=== PATIENT | female | born 1990 | race Caucasian/White ===

== ENCOUNTER 2017-12-07 20:36 | Emergency (ER) | payer BC, OTHER ==
[~2017-12-07] VITALS: Ht 170.2 cm; Wt 110.2 kg
[2017-12-07] MEDS ORDERED: [UNRECOGNIZED DRUG - OTHER] (21:22)
[2017-12-07] MEDS ORDERED: NITROFURANTOIN (21:22)
[2017-12-07 21:24] LABS: BILIRUBIN,URINE NEGATIVE (NEGATIVE); CLARITY,URINE SLIGHTLY CLOUDY; COLOR,URINE YELLOW; GLUCOSE, URINE (UA) NEGATIVE (NEGATIVE); KETONES,URINE 4+ (NEGATIVE); LEUKOCYTE ESTERASE ,URINE 3+ (NEGATIVE); NITRITE,URINE NEGATIVE (NEGATIVE); PH,URINE 8 (5-9); PROTEIN,URINE 2+ (NEGATIVE); UROBILINOGEN,URINE NORMAL (NORMAL)
[2017-12-07 21:35] LABS: BACTERIA,URINE FEW /HPF; RBC,URINE TNTC /HPF; WBC,URINE 25-50 /HPF
--- NOTE | 2017-12-07 21:48 | ED GU-Female ---
General Chief Complaint: -Female Stated Complaint: LOWER ABD PAIN;5 WKS ;UTI Nursing Triage Note: pt presents to er with complaint of abd pain. states she found out today she is roughly five weeks and has an uti. was seen by guy er earlier today and prescribed macrobid. they also told pt that she could have a threatened miscarriage, due to her spotting and bleeding since monday. pt states she has severe cramping of left side. Nursing Sepsis Screen: No Definite Risk Source: patient, family (gma) Exam Limitations: no limitations History of Present Illness Date Seen by Provider: Dec 07, 2017 Time Seen by Provider: 21:27 Initial Comments The patient resents to the ER by private conveyance with her mother and a chief complaint she's having left lower quadrant abdominal pain/pelvic pain. She thought she got off her. Monday, 6 days ago but that she continue to have spotting afterwards which concerned her as well as a little bit of pelvic discomfort so she went to urgent care which referred her on to the ER. She went to [place] [facility] because this closest where she lives and they told her that her hCG was 400 something and she was and based on her history she was having a threatened miscarriage. The patient says she has plans to follow-up on Monday for repeat hCG. She does not have an OB. She is a G 1 P0 at approximately 5 weeks. Her first and see test was yesterday. She was also found to have a UTI at that time and started on Macrobid which she took her first dose last night. She says her urine is much better however she still having quite a bit of pain in her left lower quadrant that comes and goes and she is concerned about the pain and what she can do for it. She has taken ibuprofen and Tylenol with only minimal relief. No ultrasounds been obtained. Allergies and Home Medications Allergies Coded Allergies: Penicillins (Verified Allergy, Unknown, 12/07/17) Patient Home Medication List Home Medication List Reviewed: Yes Review of Systems Constitutional: No chills, No diaphoresis, No fever, No malaise EENTM: No ear discharge, No ear pain Respiratory: No cough, No short of breath Cardiovascular: No chest pain, No edema Gastrointestinal: abdominal pain (RLQ); No constipation, No diarrhea, No nausea Genitourinary: burning; denies discharge, denies dysuria : Yes LMP: November 02, 2017 Musculoskeletal: No back pain, No joint pain Skin: No pruritus, No rash Psychiatric/Neurological: Denies Headache, Denies Numbness Past Yipoixm-Arxquv-Xbyvnv Hx Patient Social History Alcohol Use: Denies Use Recreational Drug Use: No Smoking Status: Never a Smoker Recent Foreign Travel: No Contact w/Someone Who Travel: No Recent Infectious Disease Expo: No Recent Hopitalizations: No Immunizations Up To Date PED Vaccines UTD: Yes Seasonal Allergies Seasonal Allergies: No Past Medical History Surgeries: No Respiratory: No Cardiac: No Neurological: No Genitourinary: No Gastrointestinal: No Musculoskeletal: No Endocrine: No HEENT: No Cancer: No Psychosocial: No Integumentary: No Blood Disorders: No Physical Exam Vital Signs Vital Signs - First Documented 12/07/17 21:08 Temp 98.7 Pulse 80 Resp 20 B/P (MAP) 129/83 (98) Pulse Ox 98 O2 Delivery Room Air Capillary Refill : Less Than 3 Seconds General Appearance: WD/WN, no apparent distress Cardiovascular: normal peripheral pulses, regular rate, rhythm Respiratory: no respiratory distress, no accessory muscle use Gastrointestinal: normal bowel sounds, soft, tenderness (LLQ no Rovsing sign, rebound tenderness or pain over McBurney's point. No mesenteric so as her other signs.) Back: normal inspection, no vertebral tenderness Extremities: normal range of motion, normal capillary refill Neurologic/Psychiatric: alert, oriented x 3 Skin: normal color, warm/dry Progress/Results/Core Measures Suspected Sepsis Recent Fever Within 48 Hours: No Infection Criteria Present: None New/Unexplained Altered Menta: No Sepsis Screen: No Definite Risk SIRS Temperature:98.7 Pulse: 80 Respiratory Rate: 20 Blood Pressure 129 /83 Mean: 98 Results/Orders Lab Results Laboratory Tests Test 12/07/17 21:18 Range/Units Urine Color YELLOW Urine Clarity SLIGHTLY CLOUDY Urine pH 8 5-9 Urine Specific Lutz 1.010 L 1.016-1.022 Urine Protein 2+ H NEGATIVE Urine Glucose (UA) NEGATIVE NEGATIVE Urine Ketones 4+ H NEGATIVE Urine Nitrite NEGATIVE NEGATIVE Urine Bilirubin NEGATIVE NEGATIVE Urine Urobilinogen NORMAL NORMAL MG/DL Urine Leukocyte Esterase 3+ H NEGATIVE Urine RBC (Auto) 5+ H NEGATIVE Urine RBC TNTC H /HPF Urine WBC 25-50 H /HPF Urine Squamous Epithelial Cells 2-5 /HPF Urine Crystals NONE /LPF Urine Bacteria FEW H /HPF Urine Casts NONE /LPF Urine Mucus NEGATIVE /LPF Urine Culture Indicated YES My Orders Orders - JOSÉ MIGUEL العلي Ua Culture If Indicated (12/07/17 21:12) Urine Culture (12/07/17 21:18) Fentanyl Injection (Sublimaze Injection (12/07/17 22:00) Us Ob Transvaginal [id number] (12/07/17 21:48) Medications Given in ED Current Medications Medications Dose Ordered Sig/Dinah Route Start Time Stop Time Status Last Admin Dose Admin Fentanyl Citrate 50 mcg ONCE ONCE IM 12/07/17 22:00 12/07/17 22:01 DC 12/07/17 22:27 50 MCG Vital Signs/I&O 12/07/17 21:08 Temp 98.7 Pulse 80 Resp 20 B/P (MAP) 129/83 (98) Pulse Ox 98 O2 Delivery Room Air Capillary Refill : Less Than 3 Seconds Blood Pressure Mean: 98 Progress Note #1: Time: 21:50 Progress Note While the patient's hCG from earlier today is below the discriminatory zone because she's having significant more pain than before and this brought her into the ER for the third time she's been seen for this particular complaint he does raise the specter of a ectopic . Being that she is about 5 weeks along based on her last menstrual. It's possible he might we'll see some kind of gestational sac if it is ectopic. We are going to ahead and get a transvaginal ultrasound to evaluate. Her urinalysis is consistent with UTI and she is Rigo on appropriate antibiotic so we will not do anything different about that. Patient's having any nausea but she is having significant amount of pain certainly would let her have some fentanyl now. Progress Note #2: Time: 23:30 Progress Note It was a long shot that we might see something surgical on ultrasound but we decided to do it to try and rule out that eventuality given her severe left lower quadrant pain. On reexamination her pain is much better and under control now given her fentanyl. Later she has some hydrocodone. She has Naprosyn and Tylenol home. We'll provide her with a note for work tomorrow if she needs it. Have her follow-up with the OB of her choice outpatient. Diagnostic Imaging Diagonstic Imaging: Ultrasound Plain Films/CT/US/NM/MRI: other (transvaginal OB) Comments Fluid noted in the endometrial canal which may represent blood products. No evidence of ovarian torsion. No evidence of a gestational sac. No evidence of adnexal mass. Considering a beta hCG of 400 find Valentine present very early gestation or ectopic . Follow-up with beta hCG levels recommended. Need for further imaging may be determined clinically. Reviewed: Reviewed [place] Hawk Study, Reviewed by Me Departure Impression Primary Impression: Incomplete miscarriage Disposition: HOME, SELF-CARE Condition: Improved Departure-Patient Inst. Decision time for Depature: 23:33 Referrals: NO,LOCAL PHYSICIAN (PCP) Primary Care Physician AKOSUA GARCÍA MICHAEL S DO Patient Instructions: Miscarriage (DC) Add. Discharge Instructions: Continue to use Tylenol 1000 mg every 8 hours as needed in addition to either ibuprofen 800 mg every 8 hours or Naprosyn 2 capsules twice a day for pain. You can also use heating pads. If this does not help your pain to the point that you can stand it and you can also use the Manchester one tablet every 6 hours as needed. Manchester will cause drowsiness as well as constipation. Plan to follow up with either the primary care doctor or an OB of your choice such as Dr. LYMAN early next week. Call him tomorrow morning to set up an appointment. All discharge instructions reviewed with patient and/or family. Voiced understanding. Scripts Hydrocodone Bit/Acetaminophen (Hydrocodone/Acetaminophen 5/325mg Tablet) 1 Tab Tab 1 EACH PO Q6H PRN for BREAKTHROUGH PAIN, #15 TAB 0 Refills Prov: JOSÉ MIGUEL العلي 12/07/17 Work/School Note: Work Release Form Date Seen in the Emergency Department: Dec 07, 2017 Return to Work: Dec 09, 2017 Restrictions: No Restrictions Copy Copies To 1: AKOSUA GARCÍA DO; POLO LYMAN TITUS J Dec 07, 2017 21:47
[2017-12-07] MEDS ORDERED: fentaNYL INJECTION 100 MCG/2 ML AMP IM ONE (22:00)
[2017-12-07] MEDS ORDERED: ACHD5005 PO (23:36)
[2017-12-07 23:51] VITALS: BP 129/83
--- NOTE | 2017-12-08 06:40 | Diagnostic Imaging Report ---
EXAM: US OB TRANSVAGINAL [id number] INDICATION: Pelvic pain. Vaginal bleeding. Beta-hCG 400. COMPARISON: None. FINDINGS: The uterus is normal in echogenicity and measures 5.5 x 9.2 x 4.5 cm. Small amount of fluid in the endometrial canal. The endometrium measures 1.6 cm in thickness. Left ovary measures 3.2 x 3.2 x 2.9 cm. The right ovary measures 2.4 x 2.1 x 3.2 cm. Simple cyst or follicle on the left ovary. Normal flow by color Doppler in both ovaries. A small amount of free fluid in the dependent pelvis. IMPRESSION: 1. Small amount of fluid in the endometrial canal without evidence of a gestational sac. Although this may represent blood products, a very early gestation is not excluded given the elevated beta hCG. 2. No adnexal mass or evidence of ectopic . 3. Small amount of fluid dependently in the pelvis. Dictated by: Dictated on workstation # [id number]
== END 2017-12-07 23:51 | disposition home or self-care (01) ==
LOC: ER 20:39
DX: O03.4 Incomplete spontaneous abortion without complication (principal); Z88.0 Allergy status to penicillin
CPT/HCPCS: 76817; 81000; 87088; 96372

== ENCOUNTER 2021-07-20 19:00 | Inpatient (IN) | payer OTHER ==
[~2021-07-20] VITALS: Ht 170.2 cm; Wt 112.1 kg
[~2021-07-20 19:00] MED LIST: ACHD5005 PO; NITROFURANTOIN; [UNRECOGNIZED DRUG - OTHER]
[2021-07-20] MEDS ORDERED: LACTATED RINGERS 1,000 ML IV SCH (19:45)
[2021-07-20] MEDS ORDERED: MINERAL OIL 30 ML OIL TOP PRN (19:45)
[2021-07-20] MEDS ORDERED: TERBUTALINE INJ 1 MG/ML (BRETHINE) AMP SC PRN (19:45)
[2021-07-20 20:08] VITALS: BP 122/62
[2021-07-20] MEDS: LACTATED RINGERS 1,000 ML IV SCH ×2 (20:15→21:46)
[2021-07-20 20:48] LABS: BASOPHILS % (AUTO) 0 % (0-10); EOSINOPHILS # (AUTO) 0.1 10^3/uL (0.0-0.3); EOSINOPHILS % (AUTO) 1 % (0-10); HEMATOCRIT 31 % (35-52); HEMOGLOBIN 9.4 g/dL (11.5-16.0); LYMPHOCYTES # (AUTO) 2.4 10^3/uL (1.0-4.0); LYMPHOCYTES % (AUTO) 22 % (12-44); MEAN CORPUSCULAR HEMOGLOBIN 23 pg (25-34); MEAN CORPUSCULAR HGB CONC 30 g/dL (32-36); MEAN CORPUSCULAR VOLUME 77 fL (80-99); MEAN PLATELET VOLUME 9.9 fL (9.0-12.2); MONOCYTES % (AUTO) 9 % (0-12); NEUTROPHILS # (AUTO) 7.6 10^3/uL (1.8-7.8); NEUTROPHILS % (AUTO) 68 % (42-75); PLATELET COUNT 427 10^3/uL (130-400); WHITE BLOOD COUNT 11.1 10^3/uL (4.3-11.0)
[2021-07-20 21:20] VITALS: BP 112/54
[2021-07-20 21:35] VITALS: BP 99/50
[2021-07-20 21:45] VITALS: BP 100/51
[2021-07-20] MEDS ORDERED: CATHETER FLUSH 10 ML SYR IV SCH (22:00)
[2021-07-20 22:15] VITALS: BP 98/58
[2021-07-20 23:30] VITALS: BP 115/64
[2021-07-21] VITALS (47 sets, daily range): BP systolic 75–148; BP diastolic 39–94
[2021-07-21] MEDS ORDERED: inSUlin ASPART/PROTA (NovoLOG 70/30) CHARGE PER UNIT SC ONE (01:15)
[2021-07-21] MEDS ORDERED: fentaNYL INJ 100 MCG/2 ML AMP IVP PRN (01:15)
[2021-07-21] MEDS ORDERED: inSUlin ASPART (NovoLOG) 1 UNIT/0.01 ML (CHARGE PER UNIT) SC ONE (01:30)
[2021-07-21] MEDS: LACTATED RINGERS 1,000 ML IV SCH ×3 (04:30→12:15)
[2021-07-21] MEDS ORDERED: OXYTOCIN PRE-MIX DRIP 500 ML IV SCH ×2 (05:15→12:00)
[2021-07-21] MEDS ORDERED: fentaNYL 2 mcg/ml BUPIVA 0.125 100 ML ONE (08:43)
[2021-07-21] MEDS ORDERED: fentaNYL INJ 100 MCG/2 ML AMP ONE (09:15)
[2021-07-21] MEDS ORDERED: BUPIVACAINE 0.25% 30 ML (SENSORCAINE) VIAL ONE (09:15)
--- NOTE | 2021-07-21 09:19 | History & Physical-OB ---
OB - Chief Complaint & HPI Date/Time Date of Admission: Date of Admission: Jul 20, 2021 at 19:42 Date seen by a Provider: Jul 21, 2021 Time Seen by a Provider: 08:15 Chief Complaint/History OB-Reason for Admission/Chief: Obstetrical Complication Hx : 2 Hx Para: 0 Expected Date of Delivery: Aug 01, 2021 Gestational Age in Weeks: 38 Gestational Age in Days: 3 Indication for induction: medical complication History of Labs A pos, antibody neg, RI. HIV/HepB/RPR NR. GC/chlamydia neg. GBS bacteriuria in early . Other at 38w3d admitted for IOL due to gestational diabetes with suboptimal glucose control on maximum dose of metformin, mild polyhydramnios and rapidly approaching macrosomia, patient referred to [facility] but appointment was rescheduled, and ultimately wouldn't have occurred until this week, patient adamantly declined insulin use, so she was changed to glyburide for the last few days. Weekly BPPs have been reassuring, but has had increasing ANDRÉS weekly and rapid growth. This morning, results of her US from yesterday were reviewed and noted to have gone from EFW 3800 last week, to EFW 4343 yesterday, ANDRÉS 25. Allergies and Home Medications Allergies Coded Allergies: Penicillins (Verified Allergy, Unknown, 12/07/17) Patient Home Medication List Home Medication List Reviewed: Yes Glyburide (Glyburide) 5 Mg Tablet, 5 MG PO DAILY, (Reported) Entered as Reported by: DAVIDE COOL on 07/21/21927 Last Action: New Order Discontinued Medications Hydrocodone Bit/Acetaminophen (Lortab 5 Mg Tablet) 1 Tab Tab, 1 EACH PO Q6H PRN for BREAKTHROUGH PAIN Prescribed by: JOSÉ MIGUEL العلي on 12/07/17 7226 Last Action: Discontinued [nitrofurantoin monohyd/m-cryst] , (Reported) Entered as Reported by: FERNANDO PINK on 12/07/172121 Last Action: Discontinued OB - History Hx of Present Ultrasounds: Normal mid trimester US, Abnormal US findings (mild polyhydramnios, ANDRÉS 25 yesterday, EFW 4343) Obstetrical Complications: Gestational Diabetes Medical Complications: None Information Induced Hypertension: No Maternal Gestational Diabetes: Yes Hemorrhage: No Obstetrical History Hx : 2 Hx Para: 0 Hx # Term Pregnancies: 0 Hx # Pregnancies: 0 Patient Past Medical History PMHx: Prediabetes Depression Asthma SurgHx: Mcconnell teeth extraction Social History/Family History Alcohol Use: Denies Use Recreational Drug Use: No Smoking Cessation: Never smoker Immunizations Influenza Vaccine Up-to-Date: Yes; Up-to-Date (03/24/21) First/Initial COVID19 Vaccine: 08/19/20 Second COVID19 Vaccination: 09/17/20 COVID19 Booster (Date): 05/21/21 Hepatitis B: No Tetanus Booster (TDap): Less than 5yrs (06/14/21) Rubella: immune RPR/VDRL: Negative GBS Status: Positive HBsAG: Negative OB - Admission Exam Physical Exam Vitals: Vital Signs 07/21/21 07/21/21 07:34 08:52 Temp 36.9 Pulse 75 Resp 18 B/P (MAP) 109/60 (76) O2 Delivery Room Air HEENT: NCAT Abdomen: Non tender Extremities: Normal Cervical Dilatation: 4cm Effacement: 50% Station: Ballotable Membranes: Intact Heart Rate: 130's Accelerations: Accelerations Present Decelerations: No Decelerations Short Term Variability: Present Staffing Administrator Variability: Average (6-25) Contractions on Admission: < 5 Minutes Apart Thao Scoring Tool (Modified) Dilation (cm): 0/Closed (0) Effacement (%): 0-30% (0) Descent/Station: -3 (0) Cervix Consistency: Medium(1) Cervix Position: Middle/Mid-Position (1) Subtract 1 point for: Nulliparity (-1) Thao Score: 1 Labs Laboratory Tests Test 07/20/21 20:15 07/20/21 20:17 07/20/21 21:11 07/21/21 00:49 Range/Units White Blood Count 11.1 H 4.3-11.0 10^3/uL Red Blood Count 4.03 3.80-5.11 10^6/uL Hemoglobin 9.4 L 11.5-16.0 g/dL Hematocrit 31 L 35-52 % Mean Corpuscular Volume 77 L 80-99 fL Mean Corpuscular Hemoglobin 23 L 25-34 pg Mean Corpuscular Hemoglobin Concent 30 L 32-36 g/dL Red Cell Distribution Width 15.5 H 10.0-14.5 % Platelet Count 427 H 130-400 10^3/uL Mean Platelet Volume 9.9 9.0-12.2 fL Immature Granulocyte % (Auto) 0 % Neutrophils (%) (Auto) 68 42-75 % Lymphocytes (%) (Auto) 22 12-44 % Monocytes (%) (Auto) 9 0-12 % Eosinophils (%) (Auto) 1 0-10 % Basophils (%) (Auto) 0 0-10 % Neutrophils # (Auto) 7.6 1.8-7.8 10^3/uL Lymphocytes # (Auto) 2.4 1.0-4.0 10^3/uL Monocytes # (Auto) 1.0 0.0-1.0 10^3/uL Eosinophils # (Auto) 0.1 0.0-0.3 10^3/uL Basophils # (Auto) 0.0 0.0-0.1 10^3/uL Immature Granulocyte # (Auto) 0.0 0.0-0.1 10^3/uL Glucometer 133 H 107 181 H 70-110 MG/DL Test 07/21/21 02:55 07/21/21 05:00 07/21/21 06:56 Range/Units Glucometer 118 H 89 88 70-110 MG/DL OB - Assessment/Plan/Diagnosis Assessment Admission Dx Term intrauterine at 38 weeks gestation Suboptimally controlled GDMA2 Suspected macrosomia Polyhydramnios Obesity complicating GBS positive Admission Status: Inpatient Order (span 2 midnights) Reason for Inpatient Admission: Labor, delivery and course Plan Other Plan Initial plan was for cytotec overnight and pitocin today, she did receive cytotec overnight and dilated to 350/-3 and pitocin was started, but after review of ultrasound results with EFW 4343, discussed with on-call Renal Dietitian who recommended offering to decrease risk of trauma, discussed with patient, and she would like to continue current plan, but if not progressing at quick pace indicating further concern for CPD, she would like to proceed with c- section. Monitor glucose q2 hours, was reached 180s overnight, given 4 units of Novolog with resolution of hyperglycemia, glucose 89 this am. Cefazolin for history of GBS bacteriuria (allergic to pcn but has tolerated cephalosporins in past) Problems: (1) Macrosomia affecting management of mother Qualifiers: Qualified Codes: O36.63X0 - Maternal care for excessive growth, third trimester, not applicable or unspecified (2) GBS bacteriuria (3) Polyhydramnios affecting in third trimester (4) Gestational diabetes Qualifiers: Qualified Codes: O24.415 - Gestational diabetes mellitus in , controlled by oral hypoglycemic drugs DAVIDE COOL MD Jul 21, 2021 09:19
[2021-07-21] MEDS ORDERED: GLBR5T PO (09:28)
[2021-07-21] MEDS ORDERED: ceFAZolin 2 GM IV Premixed 50 ML IV SCH (09:35)
[2021-07-21] MEDS ORDERED: diphenhydrAMINE 50 MG/ML INJ (BENADRYL) IV PRN (10:00)
[2021-07-21] MEDS ORDERED: ONDANSETRON 4 MG/2 ML (SDV) Z0FRAN IV PRN (10:00)
[2021-07-21] MEDS ORDERED: NALOXONE 0.4 MG/ML 1 ML (NARCAN) VIAL IV PRN ×2 (10:00→12:00)
[2021-07-21] MEDS ORDERED: EPIDURAL (fentaNYL 2 MCG/ML BUPIVA 0.125%)100 ML BAG EPI PRN (10:00)
[2021-07-21] MEDS ORDERED: LACTATED RINGERS 1,000 ML IV PRN ×2 (11:15)
[2021-07-21] MEDS ORDERED: CITRIC ACID/SOB CIT (BICITRA) 30 ML UDC PO ONE (11:15)
[2021-07-21] MEDS ORDERED: FAMOTIDINE 20MG/2ML IV (PEPCID) IV ONE (11:15)
[2021-07-21] MEDS ORDERED: METOCLOPRAMIDE INJ 10 MG/2 ML (REGLAN) IV ONE (11:15)
--- NOTE | 2021-07-21 11:56 | Progress Note ---
Standard Progress Note Progress Notes/Assess & Plan Date Seen by a Provider: Jul 21, 2021 Time Seen by a Provider: 11:40 Progress/Assessment & Plan I was consulted by Dr. Arroyo this AM about this patient who was IOL due to GDMA2 with poor control. She reports that EFW yesterday was 4300gms. Slow progression noted overnight with induction. She was also noted this AM to have heart rate decelerations with further augmentation of labor. Due to concerns for JORDAN, heart rate decelerations as well as GDM with suspected macrosomia decision was made to proceed with primary . All questions were answered pertaining to risk and patient was taken to the OR to prep for surgery. POLO LYMAN DO Jul 21, 2021 11:55
--- NOTE | 2021-07-21 11:59 | Discharge Inst-Women's Service ---
Discharge Inst-Women's Serv Depart Medication/Instructions New, Converted or Re-Newed RX: Transmitted to Pharmacy Final Diagnosis POD 2 PLTCS GDMA2 Problems Reviewed?: Yes Consults/Follow Up Additional Follow Up: Yes Orders/Referrals Dr. Knox in 7-[address] Arroyo in 6 weeks Activity Activity: Activity as Tolerated Driving Instructions: No Driving for 1 Week NO SMOKING: NO SMOKING Nothing Inside Vagina: No Douching, No [place], No Tampons Diet Discharge Diet: No Restrictions Symptoms to Report to : Bleeding Excessive, Pain Increased, Fever Over 101 Degrees F, Vaginal Bleeding Increase, Questions/Concerns For Any Problems or Questions: Contact Your Physician Skin/Wound Care Infection Signs and Symptoms: Increased Redness, Foul Odor of Wound, Increased Drainage, Skin Itchy or Has a Rash, Increased Swelling, Temperature Above 101 F Operative Area Clean and Dry: Keep Incision Clean/Dry Stitches/[place]ia/Dermabond: Dermabond, Care of Stitches Bathing Instructions: POLO Peter DO Jul 21, 2021 11:58
[2021-07-21] MEDS ORDERED: TETANUS,DIPTH,PERTUSS P/F (BOOSTRIX) 0.5 ML VIAL IM SCH (12:00)
[2021-07-21] MEDS ORDERED: MEASLES,MUMPS,RUBELLA 1 EA INJ SC SCH (12:00)
[2021-07-21] MEDS ORDERED: ACHD5005 PO (12:00)
[2021-07-21] MEDS ORDERED: DOCU100C37 PO (12:00)
[2021-07-21] MEDS ORDERED: IBUP-844 PO (12:00)
[2021-07-21] MEDS ORDERED: ONDANSETRON 4 MG/2 ML (SDV) Z0FRAN IVP PRN (12:00)
[2021-07-21] MEDS ORDERED: ONDANSETRON 4 MG/2 ML (SDV) Z0FRAN ONE (12:18)
[2021-07-21] MEDS ORDERED: LIDOCAINE PF 2% 5 ML (XYLOCAINE) VIAL ONE (12:38)
[2021-07-21] MEDS ORDERED: OXYTOCIN PRE-MIX DRIP 1,000 ML IV ONE (12:38)
[2021-07-21] MEDS ORDERED: BUPIVACAINE 0.5% 30 ML (SENSORCAINE) VIAL ONE (12:57)
[2021-07-21] MEDS: KETOROLAC 30 MG/ML VIAL IV SCH ×2 (13:57→20:08)
[2021-07-21] MEDS ORDERED: CATHETER FLUSH 10 ML SYR IV SCH (14:00)
[2021-07-21] MEDS ORDERED: ceFAZolin 2 GM IV Premixed 50 ML IV ONE (16:00)
--- NOTE | 2021-07-21 17:28 | OPERATIVE REPORT ---
DATE OF SERVICE: PREOPERATIVE DIAGNOSES: 1. A 31-year-old G1, P0 at 38 weeks and 3 days' gestation. 2. GDMA2, with poor glycemic control. 3. Suspected macrosomia. 4. heart rate decelerations. POSTOPERATIVE DIAGNOSES: 1. A 31-year-old G1, P0 at 38 weeks and 3 days' gestation. 2. GDMA2, with poor glycemic control. 3. Suspected macrosomia. 4. heart rate decelerations. PROCEDURE: Primary low transverse section. SURGEON: Bolivar Lyman DO ANESTHESIA: Epidural, which was bolused. ESTIMATED BLOOD LOSS: 600 mL. URINE OUTPUT: 50 mL clear at the end of the procedure. FLUIDS: 1700 mL lactated Ringer's solution. FINDINGS: A live male infant weighing 8 pounds 7 ounces, Apgars of 8 and 9. Grossly normal appearing uterus, bilateral fallopian tubes and ovaries. SPECIMEN SENT: Placenta. INDICATIONS FOR PROCEDURE: This 31-year-old female patient was induced by Dr. Arroyo yesterday evening for suspicion of macrosomia as well as GDMA2 with poor control and she contacted me earlier in the week about this patient with her poor dietary control and asked for recommendations on medication management. The patient has been switched to glyburide in the evening and still having fasting blood sugars in the 160s. Due to the poor control, she was induced at 38 weeks. Her induction was started with misoprostol overnight and made little to no progression in her change overnight. Therefore, this morning, she was offered the consideration for due to suspected macrosomia of 40 to 50 grams. Risk of primary section were discussed with the patient in detail and after all of her questions were answered, she was agreeable to proceed. Consent was obtained, the patient was taken to the operating room. OPERATIVE REPORT IN DETAIL: Once in the operating room, epidural analgesia was bolused and found to be adequate. She was placed in supine position with leftward tilt, prepped and draped in normal sterile fashion. Timeout was performed and anesthesia was tested. I then make a Pfannenstiel skin incision with a knife and carried down to underlying fascia using Bovie cautery. The fascial incision extended laterally using Bovie cautery. Superior aspect of fascial incision was then grasped with Bridger clamps, tented up and dissected off the underlying rectus muscles. The inferior aspect of fascial incision was then grasped with Bridger clamps, tented up and dissected off the underlying rectus muscles. The rectus muscles were dissected down the midline, which exposed the peritoneum, which entered bluntly and extended using blunt traction. Sandor ring retractor was placed in the peritoneal incision, which offers excellent lateral sidewall retraction. I identified the lower uterine segment, which was found to be thinned out and make a low transverse incision to the vesicouterine peritoneum and bluntly dissected off the lower uterine segment, creating a bladder flap. I then proceeded with my myotomy until membranes were visualized, at which point I extended the uterine incision laterally and superiorly using bandage scissors. Amniotomy was then performed using Allis clamp. Clear fluid was noted. Infant was found in vertex presentation. With gentle fundal pressure, the 's head was elevated up the incision where the nares and oropharynx were bulb suctioned. Anterior and posterior shoulders were delivered. The infant was then brought to the operative field where cords doubly clamped and cut and was handed off to waiting nurses in attendance. Cord blood was collected, 3-vessel cord with intact placenta was delivered spontaneously thereafter. IV Pitocin was initiated to facilitate uterine contraction. Uterine fundus confirmed by manual massage. Uterus was then exteriorized and cleared of all endometrial clots and debris. I then proceeded with closing the uterine incision using 0 Vicryl suture in running locked fashion. Second layer of imbricating 0 Monocryl was placed. Excellent hemostasis was noted after doing this. I then placed the uterus back within the pelvis and copiously irrigated the pelvis using normal saline. Once again, there was no active bleeding noted from any of my dissection planes. I placed Interceed antiadhesive over my low transverse incision. I removed the Sandor ring retractor and then proceeded with closing the peritoneum using 3-0 Vicryl suture in a running fashion. The rectus muscle reapproximated using 3-0 Vicryl suture in interrupted fashion. The fascia was reapproximated using 0 Vicryl suture in running fashion. Subcutaneous tissue was reapproximated using 3-0 plain interrupted subcutaneous stitch and skin reapproximated using 4-0 Monocryl in a running subcuticular. Dermabond was applied to the incision and sterile dressing with adhesive white tape. The patient tolerated the procedure well and sent to recovery area in stable condition. Lap and sponge counts were correct at the end of procedure. Instrument count was correct as well. Two grams of Ancef given preoperatively for infection prophylaxis. Job ID: [id number] DocumentID: [id number] Dictated Date: 07/21/2021 13:02:45 Musical String Maker Date: 07/21/2021 17:26:55 Dictated By: BOLIVAR LYMAN DO
[2021-07-21] MEDS: HYDROcodone/APAP 5 MG/325 MG (LORTAB) TAB PO PRN (20:08)
[2021-07-21] MEDS: METOCLOPRAMIDE 10 MG (REGLAN) TAB PO SCH (20:08)
[2021-07-21] MEDS: DOCUSATE SODIUM 100 MG (COLACE) CAP PO SCH (20:08)
[2021-07-21] MEDS ORDERED: ceFAZolin INJECTION 1,000 MG in NS (IVPB) 50 ML IV SCH (22:00)
[2021-07-22 01:56] VITALS: BP 93/55
[2021-07-22] MEDS: METOCLOPRAMIDE 10 MG (REGLAN) TAB PO SCH ×4 (02:04→20:51)
[2021-07-22] MEDS: KETOROLAC 30 MG/ML VIAL IV SCH (02:04)
[2021-07-22] MEDS ORDERED: inSUlin ASPART (NovoLOG) 1 UNIT/0.01 ML (CHARGE PER UNIT) SC SCH (06:00)
[2021-07-22 06:12] VITALS: BP 106/58
[2021-07-22 06:14] LABS: BASOPHILS # (AUTO) 0.1 10^3/uL (0.0-0.1); BASOPHILS % (AUTO) 1 % (0-10); EOSINOPHILS # (AUTO) 0.1 10^3/uL (0.0-0.3); EOSINOPHILS % (AUTO) 1 % (0-10); HEMATOCRIT 27 % (35-52); HEMOGLOBIN 8.1 g/dL (11.5-16.0); LYMPHOCYTES # (AUTO) 2.3 10^3/uL (1.0-4.0); LYMPHOCYTES % (AUTO) 20 % (12-44); MEAN CORPUSCULAR HEMOGLOBIN 24 pg (25-34); MEAN CORPUSCULAR HGB CONC 31 g/dL (32-36); MEAN CORPUSCULAR VOLUME 78 fL (80-99); MEAN PLATELET VOLUME 9.8 fL (9.0-12.2); MONOCYTES # (AUTO) 0.9 10^3/uL (0.0-1.0); MONOCYTES % (AUTO) 8 % (0-12); NEUTROPHILS # (AUTO) 8.2 10^3/uL (1.8-7.8); NEUTROPHILS % (AUTO) 71 % (42-75); PLATELET COUNT 333 10^3/uL (130-400); WHITE BLOOD COUNT 11.6 10^3/uL (4.3-11.0)
[2021-07-22] MEDS: HYDROcodone/APAP 5 MG/325 MG (LORTAB) TAB PO PRN ×2 (06:21→13:16)
[2021-07-22 08:00] VITALS: BP 121/78
[2021-07-22] MEDS ORDERED: IBUPROFEN 600 MG (MOTRIN) TAB PO ONE (08:24)
[2021-07-22] MEDS: DOCUSATE SODIUM 100 MG (COLACE) CAP PO SCH ×2 (08:27→20:51)
[2021-07-22] MEDS: IBUPROFEN 600 MG (MOTRIN) TAB PO SCH ×3 (08:28→20:51)
--- NOTE | 2021-07-22 08:42 | Postpartum Progress Note ---
Note Note Day # 1 Subjective: Patient is without complaints. Ambulating, voiding. Tolerating a regular diet without nausea or vomiting. Normal lochia. Pain is well controlled with oral pain medications. Objective: Physical Exam: General - Alert and oriented, no apparent distress Abdomen - Soft, appropriately tender to palpation, non-distended, fundus firm at umbilicus Extremities - no edema, negative Al's bilaterally Incision- c/d/i Assessment: POD 1 PLTCS GDM Acute blood loss anemia Plan: Routine care. Encourage breast feeding. Encourage ambulation. Ferrous sulfate supplementation. Plan for discharge tomorrow Vitals - Labs Vital Signs - I&O Vital Signs Date Time Temp Pulse Resp B/P (MAP) Pulse Ox O2 Delivery O2 Flow Rate FiO2 07/22/21 06:12 36.8 76 86 106/58 (74) 97 Room Air 07/22/21 01:56 36.2 76 18 93/55 (68) 96 Room Air 07/21/21 21:07 36.3 87 18 105/53 (70) 96 Room Air 07/21/21 16:01 36.2 97 18 118/55 (76) 89 Room Air 07/21/21 13:40 Room Air 07/21/21 13:39 36.5 18 116/67 (83) 96 Room Air 07/21/21 13:27 Room Air 07/21/21 13:25 36.6 18 103/49 (67) 97 Room Air 07/21/21 13:13 Room Air 07/21/21 13:11 36.2 18 90/52 (65) 98 Room Air 07/21/21 12:58 Room Air 07/21/21 12:55 36.4 18 107/60 (76) 100 Room Air 07/21/21 12:45 Room Air 07/21/21 12:43 36.7 18 99/43 (61) 100 Room Air 07/21/21 11:40 98 18 119/70 (86) 98 Room Air 07/21/21 11:25 89 18 90/59 (69) 100 Room Air 07/21/21 11:11 69 18 107/55 (72) 98 Room Air 07/21/21 11:02 36.4 07/21/21 10:55 67 18 97/50 (66) 98 Room Air 07/21/21 10:41 82 18 116/62 (80) 100 Room Air 07/21/21 10:10 77 18 92/57 (69) 100 Room Air 07/21/21 10:06 74 18 115/58 (77) 99 Room Air 07/21/21 10:03 107 18 109/57 (74) Room Air 07/21/21 10:00 71 18 111/57 (75) 100 Room Air 07/21/21 09:57 83 18 108/63 (78) Room Air 07/21/21 09:54 81 18 78/49 (59) 99 Room Air 07/21/21 09:51 92 18 110/58 (75) 99 Room Air 07/21/21 09:48 91 18 112/58 (76) Room Air 07/21/21 09:45 95 18 112/61 (78) 100 Room Air 07/21/21 09:42 94 18 120/58 (78) 98 Room Air 07/21/21 09:39 91 18 128/57 (80) 98 Room Air 07/21/21 09:36 95 18 142/63 (89) 99 Room Air 07/21/21 09:33 103 18 148/94 (112) 99 Room Air 07/21/21 09:30 90 18 114/66 (82) 99 Room Air 07/21/21 09:28 96 18 115/67 (83) 99 Room Air 07/21/21 09:07 83 18 117/60 (79) Room Air 07/21/21 08:52 75 18 109/60 (76) Room Air l I & O 07/22/21 07:00 Intake Total 2420 ml Output Total 1650 ml Balance 770 ml Labs Laboratory Tests 07/21/21 09:56: Glucometer 96 07/21/21 17:45: Glucometer 108 07/21/21 22:44: Glucometer 171H 07/22/21 06:04: White Blood Count 11.6H, Red Blood Count 3.40L, Hemoglobin 8.1L, Hematocrit 27L, Mean Corpuscular Volume 78L, Mean Corpuscular Hemoglobin 24L, Mean Corpuscular Hemoglobin Concent 31L, Red Cell Distribution Width 15.7H, Platelet Count 333, Mean Platelet Volume 9.8, Immature Granulocyte % (Auto) 1, Neutrophils (%) (Auto) 71, Lymphocytes (%) (Auto) 20, Monocytes (%) (Auto) 8, Eosinophils (%) (Auto) 1, Basophils (%) (Auto) 1, Neutrophils # (Auto) 8.2H, Lymphocytes # (Auto) 2.3, Monocytes # (Auto) 0.9, Eosinophils # (Auto) 0.1, Basophils # (Auto) 0.1, Immature Granulocyte # (Auto) 0.1 POLO LMYAN DO Jul 22, 2021 8:42 am
--- NOTE | 2021-07-22 13:29 | Anesthesia-Regional Post-Op ---
Regional Patient Condition Mental Status: Alert, Oriented x3 Circulation: Same as Pre-Op Headache: Absent Sensation: Full Recovery Motor Block: Absent Post Op Complications Complications None Follow Up Care/Instructions Patient Instructions None needed. Anesthesia/Patient Condition Patient is doing well, no complaints, stable vital signs, no apparent adverse anesthesia problems. No complications reported per nursing. TAYE GRANADO CRNA Jul 22, 2021 13:29
[2021-07-22 13:30] VITALS: BP 108/55
[2021-07-22 16:55] VITALS: BP 99/55
[2021-07-22 22:35] VITALS: BP 119/58
[2021-07-23] MEDS: METOCLOPRAMIDE 10 MG (REGLAN) TAB PO SCH ×3 (02:16→13:47)
[2021-07-23] MEDS: IBUPROFEN 600 MG (MOTRIN) TAB PO SCH ×3 (02:16→13:47)
[2021-07-23 03:00] VITALS: BP 113/53
--- NOTE | 2021-07-23 07:21 | Postpartum Progress Note ---
Note Note Day # 2 Subjective: Patient is without complaints. Ambulating, voiding. Tolerating a regular diet without nausea or vomiting. Normal lochia. Pain is well controlled with oral pain medications. Objective: Physical Exam: General - Alert and oriented, no apparent distress Abdomen - Soft, appropriately tender to palpation, non-distended, fundus firm at umbilicus Extremities - no edema, negative Al's bilaterally Incision- c/d/i Assessment: POD 2 PLTCS Blood sugar control improved Acute blood loss anemia Plan: Routine care. Encourage breast feeding. Encourage ambulation. Ferrous sulfate supplementation. Plan for discharge today Vitals - Labs Vital Signs - I&O Vital Signs Date Time Temp Pulse Resp B/P (MAP) Pulse Ox O2 Delivery O2 Flow Rate FiO2 07/23/21 03:00 36.8 85 18 113/53 (73) 97 Room Air 07/22/21 22:35 36.9 79 18 119/58 (78) 98 Room Air 07/22/21 16:55 36.9 81 18 99/55 (70) 100 Room Air 07/22/21 13:30 36.7 90 16 108/55 (72) 97 Room Air 07/22/21 08:00 36.7 100 16 121/78 (92) 98 Room Air Labs Laboratory Tests 07/22/21 10:38: Glucometer 66L 07/22/21 14:43: Glucometer 131H 07/22/21 22:38: Glucometer 84 07/23/21 06:13: Glucometer 84 POLO LYMAN DO Jul 23, 2021 07:21
[2021-07-23 07:33] VITALS: BP 135/62
[2021-07-23] MEDS: KETOROLAC 30 MG/ML VIAL IV SCH (08:11)
[2021-07-23] MEDS: DOCUSATE SODIUM 100 MG (COLACE) CAP PO SCH (09:10)
[2021-07-23 14:01] VITALS: BP 124/55
== END 2021-07-23 15:06 | disposition home or self-care (01) | DRG 787 ==
LOC: LDRP 19:42
PROVIDERS: ADMIT Family Medicine; ATTEND Family Medicine
PROC: 10D00Z1 Extraction of Products of Conception, Low, Open Approach (ICD-10-PCS; principal; 2021-07-21 11:51)
DX: O24.425 Gestational diabetes mellitus in childbirth, controlled by oral hypoglycemic drugs (principal); D62 Acute posthemorrhagic anemia; Z3A.38 38 weeks gestation of pregnancy; Z37.0 Single live birth; O40.3XX0 Polyhydramnios, third trimester, not applicable or unspecified; O36.63X0 Maternal care for excessive fetal growth, third trimester, not applicable or unspecified; O99.344 Other mental disorders complicating childbirth; F32.A Depression, unspecified; J45.909 Unspecified asthma, uncomplicated; O99.52 Diseases of the respiratory system complicating childbirth; O99.214 Obesity complicating childbirth; E66.9 Obesity, unspecified; O99.824 Streptococcus B carrier state complicating childbirth; O90.81 Anemia of the puerperium
CPT/HCPCS: 36415; 82947; 85025; 86850; 86900; 86901; 88307

== ENCOUNTER → 2021-11-15 | Outpatient (CLI) | payer OTHER ==
[~2021-11-15] MED LIST changes: +DOCU100C37 PO; +GLBR5T PO; +IBUP-844 PO
[2021-11-15 12:28] LABS: BASOPHILS # (AUTO) 0.1 10^3/uL (0.0-0.1); BASOPHILS % (AUTO) 1 % (0-10); EOSINOPHILS # (AUTO) 0.1 10^3/uL (0.0-0.3); EOSINOPHILS % (AUTO) 1 % (0-10); HEMATOCRIT 38 % (35-52); HEMOGLOBIN 11.7 g/dL (11.5-16.0); LYMPHOCYTES # (AUTO) 1.7 10^3/uL (1.0-4.0); LYMPHOCYTES % (AUTO) 17 % (12-44); MEAN CORPUSCULAR HEMOGLOBIN 25 pg (25-34); MEAN CORPUSCULAR HGB CONC 31 g/dL (32-36); MEAN CORPUSCULAR VOLUME 81 fL (80-99); MEAN PLATELET VOLUME 8.9 fL (9.0-12.2); MONOCYTES # (AUTO) 0.6 10^3/uL (0.0-1.0); MONOCYTES % (AUTO) 7 % (0-12); NEUTROPHILS # (AUTO) 7.2 10^3/uL (1.8-7.8); NEUTROPHILS % (AUTO) 74 % (42-75); PLATELET COUNT 378 10^3/uL (130-400); WHITE BLOOD COUNT 9.7 10^3/uL (4.3-11.0)
[2021-11-15 12:50] LABS: ALBUMIN 4.4 GM/DL (3.2-4.5); BILIRUBIN,TOTAL 0.6 MG/DL (0.1-1.0); CALCIUM 9.2 MG/DL (8.5-10.1); CREATININE SERUM 0.71 MG/DL (0.60-1.30); POTASSIUM 3.7 MMOL/L (3.6-5.0)
== END ==
LOC: LAB 12:02
PROVIDERS: ATTEND Family Medicine
DX: R10.13 Epigastric pain (principal)
CPT/HCPCS: 36415; 80053; 83690; 85025

== ENCOUNTER 2021-12-02 05:33 | Outpatient (CLI) | payer OTHER ==
[~2021-12-02] VITALS: Ht 170.2 cm; Wt 106.8 kg
[2021-12-08] MEDS ORDERED: ACHD5005 PO (10:31)
[2021-12-08] MEDS ORDERED: DOCU-143 PO (10:31)
== END 2021-12-06 10:16 | disposition home or self-care (01) ==
LOC: PREOP 05:33
PROVIDERS: ATTEND Surgery
DX: Z01.818 Encounter for other preprocedural examination (principal)

== ENCOUNTER 2021-12-08 06:49 | Day surgery (SDC) | payer OTHER ==
[2021-12-08] VITALS (10 sets, daily range): BP systolic 97–129; BP diastolic 61–77
[~2021-12-08] VITALS: Ht 170 cm; Wt 106.8 kg
[2021-12-08] MEDS ORDERED: ceFAZolin 2 GM IV Premixed 50 ML IV ONE (07:15)
[2021-12-08] MEDS ORDERED: LIDOCAINE/EPI 2% 1:200,00 (XYLOCAINE) 20 ML VIAL ONE (07:16)
[2021-12-08] MEDS ORDERED: fentaNYL INJ 100 MCG/2 ML AMP ONE (07:19)
[2021-12-08] MEDS ORDERED: SEVOFLURANE (ULTANE) 15 ML INHAL SOLN ONE ×2 (07:19→10:26)
[2021-12-08] MEDS ORDERED: LIDOCAINE PF 2% 5 ML (XYLOCAINE) VIAL ONE (07:19)
[2021-12-08] MEDS ORDERED: ONDANSETRON 4 MG/2 ML (SDV) Z0FRAN ONE (07:19)
[2021-12-08] MEDS ORDERED: proPOfol 200 MG/20 ML (DIPRIVAN) VIAL IV ONE (07:19)
[2021-12-08] MEDS ORDERED: MIDAZOLAM 2 MG/2 ML (VERSED) VIAL ONE ×2 (07:19→08:25)
[2021-12-08] MEDS: LACTATED RINGERS 1,000 ML IV PRN ×2 (07:20→10:15)
--- NOTE | 2021-12-08 07:57 | Progress Note-Pre Operative ---
Pre-Operative Progress Note H&P Reviewed The H&P was reviewed, patient examined and no changes noted. Date Seen by Provider: Dec 08, 2021 Time Seen by Provider: 07:57 Date H&P Reviewed: Dec 08, 2021 Time H&P Reviewed: 07:57 Pre-Operative Diagnosis: hemodialysis catheter STEPHANIE KOCH DO Dec 08, 2021 07:57
[2021-12-08] MEDS ORDERED: MIDAZOLAM 2 MG/2 ML (VERSED) VIAL IVP ONE (08:15)
[2021-12-08] MEDS ORDERED: BUP/EPI 0.5% 1:200,000 (MARCAINE) 10ML VIAL IJ ONE (09:11)
[2021-12-08] MEDS ORDERED: HYDROmorphone 2 MG/ML VIAL (DILAUDID) ONE (10:21)
[2021-12-08] MEDS ORDERED: NEOSTIGMINE (BLOXIVERZ ) 1 MG/1ML 10 ML VIAL ONE (10:24)
[2021-12-08] MEDS ORDERED: GLYCOPYRROLATE 0.2 MG/ML (ROBINUL) 2 ML VIAL ONE (10:25)
[2021-12-08] MEDS ORDERED: KETOROLAC 30 MG/ML VIAL ONE (10:26)
[2021-12-08] MEDS ORDERED: ROCURONIUM 50 MG/5 ML (ZEMURON) VIAL IV ONE (10:27)
--- NOTE | 2021-12-08 10:30 | Progress Note-Post Operative ---
Post-Operative Progess Note Surgeon (s)/Assembler Surgical Garment (s) Surgeon STEPHANIE KOCH DO Assembler Surgical Garment: Dr. Noble to assist in retraction dissection and closure Pre-Operative Diagnosis CHOLELITHIASIS Post-Operative Diagnosis SAME Procedure & Operative Findings Date of Procedure 12/08/21 Procedure Performed/Findings PROCEDURE: Laparoscopic cholecystectomy with intraoperative cholangiogram. COMPLICATIONS: None. PROCEDURE: The patient was taken to the operating suite and was prepped and draped in sterile fashion. A surgical pause was performed. Just superior to the umbilicus, a 12 mm incision was made. Dissection was taken down to the fascia, which was then scored and grasped with a Bridger and the abdomen was then entered. A 0 Vicryl suture was placed in a xrhxuh-ok-[id number] fashion and a Russell trocar was placed and secured. Pneumoperitoneum was achieved. A 5mm trochar place in the subxyphoid and 2 in the right upper quadrant. The gallbladder was then grasped and elevated. The cystic duct, and cystic artery were then dissected out. Clip was placed on the distal portion of the cystic duct which was then partially transected. An arrow catheter was inserted into the duct. The cholangiogram was then performed. No filing defects and contrast made its way into the duodenum. Catheter removed. Clips were placed on proximal portion of the cystic duct and then the duct was then transected. Clips were placed along the proximal and distal portion of the cystic artery which was then transected. Hook cautery was used to dissect the gallbladder from the gallbladder fossa achieving hemostasis. Clips had to be placed on posterior branch of the cystic artery. The gallbladder was placed in an Endobag and removed through the 12 mm trocar site. The abdomen was then reinspected. Copious amounts of irrigation were used to irrigate the abdomen and there were no signs of active bleeding. Hemostasis had been achieved. The 12 mm fascial defect was then closed with 0 Vicryl suture that had been placed in a [id number]-ul-xjwea fashion. The abdomen was then desufflated, the trocars were removed. The abdomen was then washed and dried. The skin was then closed using 4-0 Monocryl in a subcuticular fashion. The abdomen was washed and dried and Skin Affix was place over incisions. Patient tolerated the procedure well without any complications and was taken to the recovery room in stable condition. Anesthesia Type general Estimated Blood Loss Estimated blood loss (mL): minimal Specimens/Packing Specimens Removed gallbladder STEPHANIE KOCH DO Dec 08, 2021 10:30
[2021-12-08] MEDS ORDERED: ACHD5005 PO (10:31)
[2021-12-08] MEDS ORDERED: DOCU-143 PO (10:31)
--- NOTE | 2021-12-08 10:32 | Discharge Inst-Simple/Standard ---
Discharge Inst-Standard Discharge Medications New, Converted or Re-Newed RX: Transmitted to Pharmacy Patient Instructions/Follow Up Plan of Care/Instructions/FU: 2 weeks Altaf Activity as Tolerated: No Discharge Diet: Regular Diet Other Inst to Patient Follow up Appt: Make appointment for 2 weeks. Instructions: No lifting greater than 10 pounds. No strenuous activity. May shower in 24 hours, no tub bath or soaking. Use incentive spirometer at home as directed. No Smoking Skin/Wound Care: You have special glue over incision, it will fall off on it's own. Symptoms to Report: Appetite Changes, Extremity Discoloration, Numbness/Tingling, Swelling Increased, Bleeding Excessive, Eyesight Changes, Pain Increased, Urine Color Change, Constipation(Persistent), Fever over 101 degree F, Pain/Pressure in chest, Urinating Difficulty, Cough Up/Vomit Blood, Heart Beat Irreg/Pounding, Pain/Pressure in jaw, Vaginal Bleeding Increase, Cramps in feet or legs, Lightheadedness, Pain/Pressure in shoulder, Diarrhea(Persistent), Memory Changes Suddenly, Questions/Concerns, Weight gain consecutive days, Dizziness/Fainting, Nausea/Vomiting, Shortness of Breath, Weight gain over 2 pounds. If eyes or skin turn yellow notify physician. If questions or concerns contact your physician Or seek help at emergency department. STEPHANIE KOCH DO Dec 08, 2021 10:32
[2021-12-08] MEDS ORDERED: ONDANSETRON 4 MG/2 ML (SDV) Z0FRAN IVP PRN (10:45)
[2021-12-08] MEDS ORDERED: HYDROmorphone 2 MG/ML VIAL (DILAUDID) IV ONE (10:45)
--- NOTE | 2021-12-08 11:16 | Diagnostic Imaging Report ---
INDICATION: Fluoroscopy during intraoperative cholangiogram. FINDINGS: Fluoroscopy was provided in the OR during intraoperative cholangiogram. 8 seconds of fluoroscopic time were utilized. 38 images were obtained demonstrating contrast being injected via the cystic duct remnant. The intrahepatic and extrahepatic bile ducts are of normal caliber. No filling defects are seen. Contrast flows into the duodenum. IMPRESSION: Fluoroscopy during intraoperative cholangiogram. Dictated by: Dictated on workstation # [id number]
[2021-12-08] MEDS ORDERED: HYDROcodone/APAP 5 MG/325 MG (LORTAB) TAB ONE (12:40)
[2021-12-08] MEDS ORDERED: HYDROcodone/APAP 5 MG/325 MG (LORTAB) TAB PO ONE (12:45)
--- NOTE | 2021-12-08 13:39 | Anesthesia-General Post-Op ---
General Patient Condition Mental Status/LOC: Same as Preop Cardiovascular: Satisfactory Nausea/Vomiting: Absent Respiratory: Satisfactory Pain: Controlled Complications: Absent Post Op Complications Complications None Follow Up Care/Instructions Patient Instructions None needed. Anesthesia/Patient Condition Patient Condition Patient is doing well, no complaints, stable vital signs, no apparent adverse anesthesia problems. No complications reported per nursing. 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
== END 2021-12-08 14:00 | disposition home or self-care (01) ==
LOC: SDC 06:49
PROVIDERS: ATTEND Surgery
DX: K80.10 Calculus of gallbladder with chronic cholecystitis without obstruction (principal); E66.9 Obesity, unspecified; Z68.37 Body mass index [BMI] 37.0-37.9, adult; Z88.0 Allergy status to penicillin
CPT/HCPCS: 76000; 84703; 87081; 94664

== ENCOUNTER → 2023-04-17 | Outpatient (CLI) | payer BC ==
[~2023-04-17] VITALS: Ht 170.2 cm; Wt 108.3 kg
[~2023-04-17] MED LIST changes: +DOCU-143 PO; +INSU100V6 SQ; +PAMI30VI8 SQ; +SERT-413 PO
== END | disposition home or self-care (01) ==
LOC: PREOP 05:34
PROVIDERS: ATTEND Obstetrics & Gynecology
DX: Z01.818 Encounter for other preprocedural examination (principal)

== ENCOUNTER 2023-04-24 08:27 | Inpatient (IN) | payer BC, OTHER ==
[2023-04-24] VITALS (9 sets, daily range): BP systolic 100–128; BP diastolic 56–72
[~2023-04-24] VITALS: Ht 170 cm; Wt 108.9 kg
--- OUTSIDE RECORDS SUMMARY | 2023-04-24 08:32 | XMS REPORT ---
Author Author [facility] ter of [facility] ter of [facility] Address Unknown Phone Unavailable Care Team Providers Care Tube Room Cashier Name Role Phone DAVIDE COOL Unavailable PROBLEMS Type Condition ICD9-CM Code [id number] Code Onset Dates Condition Status W/U Status Risk SNOMED Code Notes Problem care in third trimester Z34.93 Problem resolved confirmed 116980945 Problem Vaginal discharge N89.8 Problem resolved confirmed 414165070 Problem care in second trimester Z34.92 Problem resolved confirmed 921670213 Problem 28 weeks gestation of Z3A.28 Problem resolved confirmed 03073218 Problem 32 weeks gestation of Z3A.32 Problem resolved confirmed 4752204 Problem Acne, unspecified L70.9 confirmed 10510863 Problem Late menses N92.6 confirmed 02226148 Problem BMI 36.0-36.9,oren lt Z68.36 confirmed 150899231 Problem Current moderate episode of major depressive disorder without prior episode F32.1 confirmed 94548999 Problem Late period N92.6 confirmed 48093196 Problem care in first trimester Z34.91 confirm 855363497 Problem Irritable bowel syndrome without diarrhea K58.9 confirmed 44978181 Problem History of gestational diabetes Z86.32 confirmed 064316130 Problem GERD (gastroesopha geal reflux disease) K21.9 confirmed 705098101 Problem Infertility, female N97.9 confirmed 0764572 Problem Prediabetes R73.03 confirmed 6554496 02 Problem Iron deficiency anemia secondary to inadequate dietary iron intake D50.8 confirmed 196553075 Problem Gastroesophag eal reflux disease, unspecified whether esophagitis present K21.9 confirmed 902058529 ALLERGIES Allergen (clinical drug ingredient) Drug/Non Drug Allergy documented on EMR Reaction Allergy Type Onset Date Status penicillin V Penicillin V Potassium([facility] Code:[address]-19 ) unsure of reaction Drug Allergy Active ENCOUNTERS from 1988 to 2022-12-19 Encounter Location Date Provider Diagnosis [facility] [id number] [place] [address] Jan, DAVIDE COOL Other specified disorders of amniotic fluid and membranes, first trimester, not applicable or unspecified O41.8X10 ; care in first trimester Z34.91 ; Other antepartum hemorrhage, first trimester O46.8X1 ; 11 weeks gestation of Z3A.11 and Prediabetes R73.03 IMMUNIZATIONS Vaccine Route Administration Date Status PRIVATE TDAP (BOOSTRIX) IM Intramuscular Jun 14, 2021 Administered PRIVATE FLULAVAL QUAD 0.5ML (6 MO AND UP) 2019 Unknown Apr 01, 2020 Others COVID-19 Moderna (history) Unknown August 19, 2020 Administered COVID-19 Moderna (history) Unknown September 17, 2020 Administered PRIVATE FLULAVAL QUAD 0.5ML (6 MO AND UP) 2020 IM Intramuscular Mar 24, 2021 Administered Booster PFIZER, COVID-19, 0.3mL IM Intramuscular May 122020 Administered SOCIAL HISTORY Sex Assigned At : Social History Observation Description Sex Assigned At Unknown Alcohol Screen (Audit-C) Question Answer Notes Did you have a drink containing alcohol in the p ast year? No Points 0 Interpretation Negative Sexual History Question Answer Notes Had sex in the past 12 months (vaginal, oral, or anal)? Yes Last menstrual period 07/28/2022 Have you ever had a Sexually transmitted disease ? No with Men only Use protection? No PHQ2 Question Answer Notes In the last 2 weeks, how oft en have you had little interest or pleasure in doing things? Not at all In the last 2 weeks, how oft en have you been feeling down, depressed, or hopeless? Several days Total PHQ2 Score 1 REASON FOR REFERRAL No Information VITAL SIGNS Height 68 in Jan, Weight 247.6 lbs Jan, Weight-kg 112.31 kg Jan, Temperature 97.4 degrees Fahrenheit Jan, Heart Rate 96 bpm Jan, Respiratory Rate 20 bpm Jan, Oximetry 98 % Jan, BMI 37.64 kg/m2 Jan, Blood pressure systolic 130 mmHg Jan, Blood pressure diastolic 58 mmHg Jan, MEDICATIONS Medication SIG (Take, Route, Fr equency, Duration) Notes Start Date End Date Status Iron 240 (27 Fe) MG 1 tablet with water or juice between meals Orally Once a day Active REASON FOR VISIT [id number] MEDICAL (GENERAL) HISTORY Type Description Date Medical History asthma - pt. uses e ssential oil mixture of peppermint Medical History Bronchitis Medical History Anemia Medical History IBS Medical History COVID 07/02 Medical History care in sec ond trimester (resolved 09/08/2021) Medical History 28 weeks gestation o f (resolved 09/08/2021) Medical History 32 weeks gestation o f (resolved 09/08/2021) Medical History Vaginal discharge (resolved 08/12) Medical History care in thi rd trimester (resolved 09/08/2021) Medical History gall bladder Surgical History Root canal Surgical History C section 07/21/2021 Surgical History galbladder removal 11/2021 Hospitalization History n/a Hospitalization History Childbirth 07/21/2021 MENTAL STATUS No Information ASSESSMENTS Encounter Date Diagnosis Assessment Notes Treatment Notes Treatment Clinical Notes Jan, care in first trimester (ICD-10 - Z34.91) Weeks 10 to 14 of Your : Care Instructions material was published, Weeks 10 to 14 of Your : Care Instructions material was published Jan, Other specified disorders of amniotic fluid and membranes, first trimester, not applicable or unspecified (ICD-10 - O41.8X10) Jan, Other antepartum hemorrhage, first trimester (ICD-10 - O46.8X1) Jan, 11 weeks gestation of (ICD-10 - Z3A.11) Jan, Prediabetes (ICD-10 - R73.03) PLAN OF TREATMENT Treatment Notes Assessment Notes Clinical Notes care in first trimester Weeks 1 0 to 14 of Your : Care Instructions material was published, Weeks 10 to 14 of Your : Care Instructions material was published Next Appt Details 4W Reason: Provider Name:DAVIDE Gustafson, 2023-01-03 09:00:00 AM, [address], [id number], [place], [address], Insurance Providers Payer Name Payer Address Payer Phone Insured Name Patient Relationship to Insured Coverage Start Date Coverage End Date Subscriber Number Group Number [employer] OF [id number] [facility] [id number] Floyd Hedrick Self - patient is the insured [id number]
--- OUTSIDE RECORDS SUMMARY | 2023-04-24 08:32 | XMS REPORT ---
Author Author [facility] ter of [facility] ter of [facility] Address Unknown Phone Unavailable Care Team Providers Care Supervisor Framing Mill Name Role Phone DAVIDE COOL Unavailable PROBLEMS Type Condition ICD9-CM Code UNW15-AP Code Onset Dates Condition Status W/U Status Risk SNOMED Code Notes Problem care in third trimester Z34.93 Problem resolved confirmed 202839590 Problem Vaginal discharge N89.8 Problem resolved confirmed 055823981 Problem care in second trimester Z34.92 Problem resolved confirmed 850035336 Problem 28 weeks gestation of Z3A.28 Problem resolved confirmed 28754209 Problem 32 weeks gestation of Z3A.32 Problem resolved confirmed 6048758 Problem Acne, unspecified L70.9 confirmed 92515794 Problem Late menses N92.6 confirmed 36757522 Problem BMI 36.0-36.9,oren lt Z68.36 confirmed 142075633 Problem Current moderate episode of major depressive disorder without prior episode F32.1 confirmed 61260722 Problem Late period N92.6 confirmed 09740321 Problem care in first trimester Z34.91 confirm 425355336 Problem Irritable bowel syndrome without diarrhea K58.9 confirmed 24677948 Problem History of gestational diabetes Z86.32 confirmed 653998710 Problem GERD (gastroesopha geal reflux disease) K21.9 confirmed 021598282 Problem Infertility, female N97.9 confirmed 5151759 Problem Prediabetes R73.03 confirmed 6985004 02 Problem Iron deficiency anemia secondary to inadequate dietary iron intake D50.8 confirmed 765174786 Problem Gastroesophag eal reflux disease, unspecified whether esophagitis present K21.9 confirmed 250770503 ALLERGIES Allergen (clinical drug ingredient) Drug/Non Drug Allergy documented on EMR Reaction Allergy Type Onset Date Status penicillin V Penicillin V Potassium([facility] [place] 2[facility] Code:[address]-65 ) unsure of reaction Drug Allergy Active ENCOUNTERS from 1988 to 2023-01-27 Encounter Location Date Provider Diagnosis [facility] [id number] [place] [address] Feb, DAVIDE COOL 15 weeks gestation of Z3A.15 and care in second trimester Z34.92 IMMUNIZATIONS Vaccine Route Administration Date Status PRIVATE [...] FOR REFERRAL No Information VITAL SIGNS Height 38.19 in Feb, Height-cm 97 cm Feb, Weight 243 lbs Feb, Weight-kg 110.22 kg Feb, Temperature 97.7 degrees Fahrenheit Feb, Heart Rate 95 bpm Feb, Respiratory Rate 20 bpm Feb, Oximetry 99 % Feb, BMI 117.141 kg/m2 Feb, Blood pressure systolic 120 mmHg Feb, Blood pressure diastolic 72 mmHg Feb, MEDICATIONS Medication SIG (Take, Route, Frequency, Duration) Notes Start Date End Date Status Gummies Act helder Ferrous Sulfate 325 (65 Fe) MG 1 tablet Orally Three times a Week for 30 days Jan, Active Iron 240 (27 Fe) MG 1 tablet with water or juice between meals Orally Once a day Active REASON FOR VISIT OB f/u, White discharge x 1 week ago. MARCOS NEIL MEDICAL (GENERAL) HISTORY Type Description Date Medical [...] Assessment Notes Treatment Notes Treatment Clinical Notes Feb, care in second trimester (ICD-10 - Z34.92) Feb, 15 weeks gestation of (ICD-10 - Z3A.15) Weeks 14 to 18 of Your : Care Instructions material was published Feb, Other Pt seen and examined by me along with OMRonald Bonilla, agree with documentation unless otherwise noted. PLAN OF TREATMENT Medication Medication Name Sig Start Date Stop Date Ferrous Sulfate 325 (65 Fe) MG 1 tablet Orally Three times a Week for 30 days Jan, Treatment Notes Assessment Notes Clinical Notes 15 weeks gestation of Weeks 14 to 18 of Your : Care Instructions material was published Next Appt Details 4 Weeks Reason: Provider Name:TERI PERAZA , 2023-01-31 05:40:00 PM, [address] [facility], [place], [address], Provider Name:DAVIDE VALDOVINOS H, 2023-02-16 02:00:00 PM, [address] [address], [id number], [place], [address], Insurance Providers Payer Name Payer Address Payer Phone Insured Name Patient Relationship to Insured Coverage Start Date Coverage End Date Subscriber Number Group Number [employer] OF [place] [id number] [facility] [id number] Floyd Hedrick Self - patient is the insured [id number]
--- OUTSIDE RECORDS SUMMARY | 2023-04-24 08:32 | XMS REPORT ---
Author Author [facility] ter of [facility] ter of [facility] Address Unknown Phone Unavailable Care Team Providers Care Welding Machine Operator Electroslag Name Role Phone DAVIDE COOL Unavailable PROBLEMS Type Condition ICD9-CM Code EHR08-CA Code Onset Dates Condition Status W/U Status Risk SNOMED Code Notes Problem care in third trimester Z34.93 Problem resolved confirmed 965664781 Problem Vaginal discharge N89.8 Problem resolved confirmed 980005565 Problem care in second trimester Z34.92 Problem resolved confirmed 457442638 Problem 28 weeks gestation of Z3A.28 Problem resolved confirmed 87480895 Problem 32 weeks gestation of Z3A.32 Problem resolved confirmed 3616529 Problem Acne, unspecified L70.9 confirmed 01515635 Problem Late menses N92.6 confirmed 56803120 Problem BMI 36.0-36.9,oren lt Z68.36 confirmed 842673341 Problem Current moderate episode of major depressive disorder without prior episode F32.1 confirmed 57374096 Problem Late period N92.6 confirmed 50538280 Problem care in first trimester Z34.91 confirm 486346525 Problem Irritable bowel syndrome without diarrhea K58.9 confirmed 06435776 Problem History of gestational diabetes Z86.32 confirmed 347937130 Problem GERD (gastroesopha geal reflux disease) K21.9 confirmed 168404301 Problem Infertility, female N97.9 confirmed 8913890 Problem Prediabetes R73.03 confirmed 1169142 02 Problem Iron deficiency anemia secondary to inadequate dietary iron intake D50.8 confirmed 513054670 Problem Gastroesophag eal reflux disease, unspecified whether esophagitis present K21.9 confirmed 027553170 ALLERGIES Allergen (clinical drug ingredient) Drug/Non Drug Allergy documented on EMR Reaction Allergy Type Onset Date Status penicillin V Penicillin V Potassium([facility] Code:[address]-95 ) unsure of reaction Drug Allergy Active ENCOUNTERS from 1988 to 2023-02-08 Encounter Location Date Provider Diagnosis [facility] [place] [address] [place] [address] Feb, DAVIDE COOL care in second trimester Z34.92 IMMUNIZATIONS Vaccine Route Administration Date Status PRIVATE FLULAVAL QUAD 0.5ML (6 MO AND UP) 2020 IM Intramuscular Mar 24, 2021 Administered Booster PFIZER, COVID-19, 0.3mL IM Intramuscular May 122020 Administered COVID-19 Moderna (history) Unknown September 17, 2020 Administered COVID-19 Moderna (history) Unknown August 19, 2020 Administered PRIVATE FLULAVAL QUAD 0.5ML (6 MO AND UP) 2019 Unknown Apr 01, 2020 Others PRIVATE TDAP (BOOSTRIX) IM Intramuscular Jun 14, 2021 Administered SOCIAL HISTORY Sex Assigned At : [...] Score 1 REASON FOR REFERRAL No Information MEDICATIONS Medication SIG (Take, Route, Frequency, Duration) Notes Start Date End Date Status Ferrous Sulfate 325 (65 Fe) MG 1 tablet Orally Three times a Week for 30 days Jan, Active Blood Glucose Test - 4 times daily In Vitro for 30 days For Glucocard Shine Connex May, Active Iron 240 (27 Fe) MG 1 tablet with water or juice between meals Orally Once a day Active Gummies Act helder REASON FOR VISIT U/S OB follow up- Keyla Francois RT(R)(M)RDMS,RVT MEDICAL (GENERAL) HISTORY Type Description Date Medical [...] care in second trimester (ICD-10 - Z34.92) PLAN OF TREATMENT Medication Medication Name Sig Start Date Stop Date Blood Glucose Test - 4 times daily In Vitro for 30 day s May, Next Appt Details Provider Name:DAVIDE VALDOVINOS , 2023-02-16 02:00:00 PM, [address] [facility], [id number], [place], [address], Insurance Providers Payer Name Payer Address Payer Phone Insured Name Patient Relationship to Insured Coverage Start Date Coverage End Date Subscriber Number Group Number [place] [address] [facility] [id number] Floyd Hedrick Self - patient is the insured [id number]
--- OUTSIDE RECORDS SUMMARY | 2023-04-24 08:32 | XMS REPORT ---
Author Author [facility] ter of [facility] ter of [facility] Address Unknown Phone Unavailable Care Team Providers Care Revising Clerk Name Role Phone DEONNA Morrison Unavailable [phone] PROBLEMS Type Condition ICD9-CM Code BXR92-SV Code Onset Dates Condition Status W/U Status Risk SNOMED Code Notes Problem care in third trimester Z34.93 Problem resolved confirmed 215774243 Problem Vaginal discharge N89.8 Problem resolved confirmed 314439057 Problem care in second trimester Z34.92 Problem resolved confirmed 607731518 Problem 28 weeks gestation of Z3A.28 Problem resolved confirmed 54874477 Problem 32 weeks gestation of Z3A.32 Problem resolved confirmed 1932580 Problem Acne, unspecified L70.9 confirmed 27700581 Problem Late menses N92.6 confirmed 06223206 Problem BMI 36.0-36.9,oren lt Z68.36 confirmed 008507183 Problem Current moderate episode of major depressive disorder without prior episode F32.1 confirmed 59998972 Problem Late period N92.6 confirmed 62502101 Problem care in first trimester Z34.91 confirm 246589800 Problem Irritable bowel syndrome without diarrhea K58.9 confirmed 10328479 Problem History of gestational diabetes Z86.32 confirmed 175097232 Problem GERD (gastroesopha geal reflux disease) K21.9 confirmed 996643480 Problem Infertility, female N97.9 confirmed 3197780 Problem Prediabetes R73.03 confirmed 0354924 02 Problem Iron deficiency anemia secondary to inadequate dietary iron intake D50.8 confirmed 309556543 Problem Gastroesophag eal reflux disease, unspecified whether esophagitis present K21.9 confirmed 105707123 ALLERGIES Allergen (clinical drug ingredient) Drug/Non Drug Allergy documented on EMR Reaction Allergy Type Onset Date Status penicillin V Penicillin V Potassium([facility] Code:[address]-76 ) unsure of reaction Drug Allergy Active ENCOUNTERS from 1988 to 2022-11-15 Encounter Location Date [facility] [address] [id number] [address] Nov, DEONNA Morrison IMMUNIZATIONS Vaccine Route Administration Date Status Booster PFIZER, COVID-19, 0.3mL IM Intramuscular May 122020 Administered PRIVATE FLULAVAL QUAD 0.5ML (6 MO AND UP) 2020 IM Intramuscular Mar 24, 2021 Administered COVID-19 Moderna (history) Unknown September 17, [...] you been feeling down, depressed, or hopeless? Not at all Total PHQ2 Score 0 REASON FOR REFERRAL No Information MEDICATIONS Medication SIG (Take, Route, Fr equency, Duration) Notes Start Date End Date Status Iron 240 (27 Fe) MG 1 tablet with water or juice between meals Orally Once a day Active REASON FOR VISIT Requests return call MEDICAL (GENERAL) HISTORY Type Description Date Medical [...] History Childbirth 07/21/2021 MENTAL STATUS No Information PLAN OF TREATMENT Next Appt Details Provider Name:TERI PERAZA , 2022-11-30 05:20:00 PM, [address], [place], [address], Insurance Providers Payer Name Payer Address Payer Phone Insured Name Patient Relationship to Insured Coverage Start Date Coverage End Date Subscriber Number Group Number [place] OF [place] [address] [facility] [id number] Floyd Hedrick Self - patient is the insured [id number]
--- OUTSIDE RECORDS SUMMARY | 2023-04-24 08:32 | XMS REPORT ---
Author Author [facility] ter of [facility] ter of [facility] Address Unknown Phone Unavailable Care Team Providers Care Health Inspector Name Role Phone AKOSUA GARCÍA Unavailable PROBLEMS Type Condition ICD9-CM Code OWM68-FV Code Onset Dates Condition Status W/U Status Risk SNOMED Code Notes Problem care in second trimester Z34.92 Problem resolved confirmed 307325169 Problem care in third trimester Z34.93 Problem resolved confirmed 975117960 Problem 32 weeks gestation of Z3A.32 Problem resolved confirmed 1502933 Problem Vaginal discharge N89.8 Problem resolved confirmed 706300788 Problem Late menses N92.6 confirmed 11918865 Problem 28 weeks gestation of Z3A.28 Problem resolved confirmed 67858173 Problem Irritable bowel syndrome without diarrhea K58.9 confirmed 56696400 Problem Acne, unspecified L70.9 confirmed 40685263 Problem Infertility, female N97.9 confirmed 7105545 Problem Current moderate episode of major depressive disorder without prior episode F32.1 confirmed 73849410 Problem Late period N92.6 confirmed 75269686 Problem History of gestational diabetes Z86.32 confirmed 343573863 Problem BMI 36.0-36.9,oren lt Z68.36 confirmed 101647755 Problem Generalized anxiety disorder F41.1 confirmed 53787784 Problem GERD (gastroesopha geal reflux disease) K21.9 confirmed 821089800 Problem Prediabetes R73.03 confirmed 4008468 02 Problem Iron deficiency anemia secondary to inadequate dietary iron intake D50.8 confirmed 399735928 Problem Gastroesophag eal reflux disease, unspecified whether esophagitis present K21.9 confirmed 775470874 Problem care in first trimester Z34.91 confirm 563166027 ALLERGIES Allergen (clinical drug ingredient) Drug/Non Drug Allergy documented on EMR Reaction Allergy Type Onset Date Status penicillin V Penicillin V Potassium([facility] Code:[address]-27 ) unsure of reaction Drug Allergy Active ENCOUNTERS from 1988 to 2023-03-16 Encounter Location Date Provider Diagnosis [facility] [address] [facility] [id number] [address] 13 Mar, 2021 AKOSUA GARCÍA Encounter for immunization Z23 IMMUNIZATIONS Vaccine Route Administration Date Status PRIVATE FLULAVAL QUAD 0.5ML (6 MO AND UP) 2019 Unknown Apr 01, 2020 Others PRIVATE TDAP (BOOSTRIX) IM Intramuscular Jun 14, 2021 Administered COVID-19 Moderna (history) Unknown August 19, 2020 Administered COVID-19 Moderna (history) Unknown September 17, 2020 Administered Booster PFIZER, COVID-19, 0.3mL IM Intramuscular May 122020 Administered PRIVATE TDAP (BOOSTRIX) IM Intramuscular Feb 28, 2023 Administered PRIVATE FLU 23-24 (FLULAVAL) 6MO & UP IM Intramuscular Feb 28, 2023 Administered PRIVATE FLULAVAL QUAD 0.5ML (6 MO AND UP) 2020 IM Intramuscular Mar 24, 2021 Administered SOCIAL HISTORY Sex Assigned At [...] between meals Orally Once a day Active Blood Glucose Test - 4 times daily In Vitro for 30 days For Glucocard Shinromel Wendie May, Active Sertraline HCl 50 MG 1 tablet Orally Once a day for 30 days Feb, Active Lancets - use to test blood sugar 4 times daily for 30 days Mar, Active metFORMIN HCl 500 MG 1 tablet with a meal Orally Once a day for 30 days Feb, Active Ferrous Sulfate 325 (65 Fe) MG 1 tablet Orally Three times a Week for 30 days Jan, Active Gummies Act helder REASON FOR VISIT Flu shot MEDICAL (GENERAL) HISTORY Type Description Date Medical [...] Assessment Notes Treatment Notes Treatment Clinical Notes Mar, Encounter for immunization (ICD-10 - Z23) PLAN OF TREATMENT Medication Medication Name Sig Start Date Stop Date Blood Glucose Test - 4 times daily In Vitro for 30 day s May, Lancets - use to test blood chau gar 4 times daily for 30 days Mar, Insurance Providers Payer Name Payer Address Payer Phone Insured Name Patient Relationship to Insured Coverage Start Date Coverage End Date Subscriber Number Group Number BCBS OF [place] [address] [place] [address] Floyd Hedrick Self - patient is the insured [id number]
--- OUTSIDE RECORDS SUMMARY | 2023-04-24 08:32 | XMS REPORT ---
Author Author [facility] ter of [facility] ter of [facility] Address Unknown Phone Unavailable Care Team Providers Care Sales And Events Coordinator Name Role Phone DAVIDE COOL Unavailable PROBLEMS Type Condition ICD9-CM Code DSK98-NS Code Onset Dates Condition Status W/U Status Risk SNOMED Code Notes Problem care in third trimester Z34.93 Problem resolved confirmed 221114319 Problem Vaginal discharge N89.8 Problem resolved confirmed 898181739 Problem care in second trimester Z34.92 Problem resolved confirmed 972774801 Problem 28 weeks gestation of Z3A.28 Problem resolved confirmed 87120603 Problem 32 weeks gestation of Z3A.32 Problem resolved confirmed 1808457 Problem Acne, unspecified L70.9 confirmed 47981311 Problem Late menses N92.6 confirmed 53432327 Problem BMI 36.0-36.9,oren lt Z68.36 confirmed 057420525 Problem Current moderate episode of major depressive disorder without prior episode F32.1 confirmed 29578182 Problem Late period N92.6 confirmed 72540632 Problem care in first trimester Z34.91 confirm 635200936 Problem Irritable bowel syndrome without diarrhea K58.9 confirmed 58650675 Problem History of gestational diabetes Z86.32 confirmed 944140617 Problem GERD (gastroesopha geal reflux disease) K21.9 confirmed 757927682 Problem Infertility, female N97.9 confirmed 5113899 Problem Prediabetes R73.03 confirmed 1945029 02 Problem Iron deficiency anemia secondary to inadequate dietary iron intake D50.8 confirmed 053237968 Problem Gastroesophag eal reflux disease, unspecified whether esophagitis present K21.9 confirmed 014837825 ALLERGIES Allergen (clinical drug ingredient) Drug/Non Drug Allergy documented on EMR Reaction Allergy Type Onset Date Status penicillin V Penicillin V Potassium([facility] 2[facility] Code:[address]-91 ) unsure of reaction Drug Allergy Active ENCOUNTERS from 1988 to 2022-12-02 Encounter Location Date Provider Diagnosis [facility] [address] [facility] [id number] [place] [address] Dec, DAVIDE COOL IMMUNIZATIONS Vaccine Route Administration Date Status Booster [...] Once a day Active REASON FOR VISIT Missed Call 12/22/2020 MEDICAL (GENERAL) HISTORY Type Description Date Medical [...] PLAN OF TREATMENT Next Appt Details Provider Name:DAVIDECarlos VALDOVINOS , 2023-01-03 09:00:00 AM, [address] [facility], [id number], [place], [address], Insurance Providers Payer Name Payer Address Payer Phone Insured Name Patient Relationship to Insured Coverage Start Date Coverage End Date Subscriber Number Group Number [place] OF [place] [address] [facility] [id number] [phone] Floyd Hedrick Self - patient is the insured [id number]
--- OUTSIDE RECORDS SUMMARY | 2023-04-24 08:32 | XMS REPORT ---
Author Author [facility] ter of [facility] ter of [facility] Address Unknown Phone Unavailable Care Team Providers Care Tapper Supervisor Name Role Phone DOENNA Morrison Unavailable PROBLEMS Type Condition ICD9-CM Code JLW64-SF Code Onset Dates Condition Status W/U Status Risk SNOMED Code Notes Problem care in third trimester Z34.93 Problem resolved confirmed 749600818 Problem Vaginal discharge N89.8 Problem resolved confirmed 934806366 Problem care in second trimester Z34.92 Problem resolved confirmed 531782062 Problem 28 weeks gestation of Z3A.28 Problem resolved confirmed 80920841 Problem 32 weeks gestation of Z3A.32 Problem resolved confirmed 5460228 Problem Acne, unspecified L70.9 confirmed 07724325 Problem Late menses N92.6 confirmed 53874440 Problem BMI 36.0-36.9,oren lt Z68.36 confirmed 793449257 Problem Current moderate episode of major depressive disorder without prior episode F32.1 confirmed 59222115 Problem Late period N92.6 confirmed 09533084 Problem care in first trimester Z34.91 confirm 150937413 Problem Irritable bowel syndrome without diarrhea K58.9 confirmed 64698914 Problem History of gestational diabetes Z86.32 confirmed 128292587 Problem GERD (gastroesopha geal reflux disease) K21.9 confirmed 786760520 Problem Infertility, female N97.9 confirmed 0101469 Problem Prediabetes R73.03 confirmed 6028846 02 Problem Iron deficiency anemia secondary to inadequate dietary iron intake D50.8 confirmed 004646665 Problem Gastroesophag eal reflux disease, unspecified whether esophagitis present K21.9 confirmed 062301876 ALLERGIES Allergen (clinical drug ingredient) Drug/Non Drug Allergy documented on EMR Reaction Allergy Type Onset Date Status penicillin V Penicillin V Potassium([facility] Code:[address]-21 ) unsure of reaction Drug Allergy Active ENCOUNTERS from 1988 to 2022-11-15 Encounter [facility] Date [facility] [address] [id number] [place] [address] Nov, DEONNA Morrison IMMUNIZATIONS Vaccine Route Administration [...] 05:20:00 PM, [address], [place], [address], Insurance Providers Payer Name Payer Address Payer Phone Insured Name Patient Relationship to Insured Coverage Start Date Coverage End Date Subscriber Number Group Number [employer] OF [place] [address] [facility] [id number] Floyd Hedrcik Self - patient is the insured [id number]
--- OUTSIDE RECORDS SUMMARY | 2023-04-24 08:32 | XMS REPORT ---
Author Author [facility] ter of [facility] ter of [facility] Address Unknown Phone Unavailable Care Team Providers Care Rock Wool Applicator Name Role Phone DAVIDE COOL Unavailable PROBLEMS ALLERGIES ENCOUNTERS from 1988 to 2022-12-02 IMMUNIZATIONS SOCIAL HISTORY No smoking Hx information available REASON FOR REFERRAL No Information MEDICATIONS REASON FOR VISIT MEDICAL (GENERAL) HISTORY MENTAL STATUS PLAN OF TREATMENT Insurance Providers
--- OUTSIDE RECORDS SUMMARY | 2023-04-24 08:32 | XMS REPORT ---
Author Author [facility] ter of [facility] ter of [facility] Address Unknown Phone Unavailable Care Team Providers Care Lathe Spotter Name Role Phone DAVIDE COOL Unavailable PROBLEMS Type Condition ICD9-CM Code GAV02-ZQ Code Onset Dates Condition Status W/U Status Risk SNOMED Code Notes Problem care in third trimester Z34.93 Problem resolved confirmed 226399498 Problem Vaginal discharge N89.8 Problem resolved confirmed 663607712 Problem care in second trimester Z34.92 Problem resolved confirmed 308721153 Problem 28 weeks gestation of Z3A.28 Problem resolved confirmed 78920405 Problem 32 weeks gestation of Z3A.32 Problem resolved confirmed 5451510 Problem Acne, unspecified L70.9 confirmed 46355867 Problem Late menses N92.6 confirmed 98401434 Problem BMI 36.0-36.9,oren lt Z68.36 confirmed 064892878 Problem Current moderate episode of major depressive disorder without prior episode F32.1 confirmed 05508727 Problem Late period N92.6 confirmed 51697722 Problem care in first trimester Z34.91 confirm 470510072 Problem Irritable bowel syndrome without diarrhea K58.9 confirmed 76026150 Problem History of gestational diabetes Z86.32 confirmed 593756165 Problem GERD (gastroesopha geal reflux disease) K21.9 confirmed 317753341 Problem Infertility, female N97.9 confirmed 5147419 Problem Prediabetes R73.03 confirmed 7464404 02 Problem Iron deficiency anemia secondary to inadequate dietary iron intake D50.8 confirmed 909612931 Problem Gastroesophag eal reflux disease, unspecified whether esophagitis present K21.9 confirmed 640140221 ALLERGIES Allergen (clinical drug ingredient) Drug/Non Drug Allergy documented on EMR Reaction Allergy Type Onset Date Status penicillin V Penicillin V Potassium([facility] Code:[address]-64 ) unsure of reaction Drug Allergy Active ENCOUNTERS from 1988 to 2022-11-17 Encounter Location Date Provider Diagnosis [facility] [address] [facility] [id number] [place] [address] Nov, DAVIDE COOL IMMUNIZATIONS Vaccine Route Administration Date Status PRIVATE [...] UP) 2019 Unknown Apr 01, 2020 Others SOCIAL HISTORY Sex Assigned At : Social [...] Once a day Active REASON FOR VISIT Re:RE:Yolanda - Swimming MEDICAL (GENERAL) HISTORY Type Description Date Medical [...] PERAZA , 2022-11-30 05:20:00 PM, [address], [place], [address], Insurance Providers Payer Name Payer Address Payer Phone Insured Name Patient Relationship to Insured Coverage Start Date Coverage End Date Subscriber Number Group Number [employer] OF [place] [address] [facility] [id number] Floyd Hedrick Self - patient is the insured [id number]
--- OUTSIDE RECORDS SUMMARY | 2023-04-24 08:32 | XMS REPORT ---
Author Author [facility] ter of [facility] ter of [facility] Address Unknown Phone Unavailable Care Team Providers Care Batch Unit Treater Name Role Phone DEONNA Morrison Unavailable [phone] PROBLEMS Type Condition ICD9-CM Code RMP12-MC Code Onset Dates Condition Status W/U Status Risk SNOMED Code Notes Problem care in third trimester Z34.93 Problem resolved confirmed 695548218 Problem Vaginal discharge N89.8 Problem resolved confirmed 757403164 Problem care in second trimester Z34.92 Problem resolved confirmed 577783938 Problem 28 weeks gestation of Z3A.28 Problem resolved confirmed 91076275 Problem 32 weeks gestation of Z3A.32 Problem resolved confirmed 2264114 Problem Acne, unspecified L70.9 confirmed 47095921 Problem Late menses N92.6 confirmed 90498815 Problem BMI 36.0-36.9,oren lt Z68.36 confirmed 646162435 Problem Current moderate episode of major depressive disorder without prior episode F32.1 confirmed 73039268 Problem Late period N92.6 confirmed 79570739 Problem care in first trimester Z34.91 confirm 562104072 Problem Irritable bowel syndrome without diarrhea K58.9 confirmed 65040654 Problem History of gestational diabetes Z86.32 confirmed 478247390 Problem GERD (gastroesopha geal reflux disease) K21.9 confirmed 086568232 Problem Infertility, female N97.9 confirmed 8147920 Problem Prediabetes R73.03 confirmed 3207239 02 Problem Iron deficiency anemia secondary to inadequate dietary iron intake D50.8 confirmed 467725011 Problem Gastroesophag eal reflux disease, unspecified whether esophagitis present K21.9 confirmed 535346822 ALLERGIES Allergen (clinical drug ingredient) Drug/Non Drug Allergy documented on EMR Reaction Allergy Type Onset Date Status penicillin V Penicillin V Potassium([facility] Code:[address]-45 ) unsure of reaction Drug Allergy Active ENCOUNTERS from 1988 to 2022-11-10 Encounter Location Date Provider Diagnosis [facility] [address] [facility] [id number] [place] [address] Nov, DEONNA Morrison IMMUNIZATIONS Vaccine Route Administration Date Status PRIVATE [...] PERAZA , 2022-11-30 05:20:00 PM, [address] [facility], [place], [address], Insurance Providers Payer Name Payer Address Payer Phone Insured Name Patient Relationship to Insured Coverage Start Date Coverage End Date Subscriber Number Group Number [employer] OF [place] [address] [facility] [id number] Floyd Hedrick Self - patient is the insured [id number]
--- OUTSIDE RECORDS SUMMARY | 2023-04-24 08:32 | XMS REPORT ---
Author Author [facility] ter of [facility] ter of [facility] Address Unknown Phone Unavailable Care Team Providers Care Third Loader Name Role Phone DAVIDE COOL Unavailable PROBLEMS Type Condition ICD9-CM Code YII50-IH Code Onset Dates Condition Status W/U Status Risk SNOMED Code Notes Problem care in third trimester Z34.93 Problem resolved confirmed 821032614 Problem Vaginal discharge N89.8 Problem resolved confirmed 869213857 Problem care in second trimester Z34.92 Problem resolved confirmed 425459105 Problem 28 weeks gestation of Z3A.28 Problem resolved confirmed 67257869 Problem 32 weeks gestation of Z3A.32 Problem resolved confirmed 5815950 Problem Acne, unspecified L70.9 confirmed 46293328 Problem Late menses N92.6 confirmed 26734900 Problem BMI 36.0-36.9,oren lt Z68.36 confirmed 870350075 Problem Current moderate episode of major depressive disorder without prior episode F32.1 confirmed 16934182 Problem Late period N92.6 confirmed 60891399 Problem care in first trimester Z34.91 confirm 947768774 Problem Irritable bowel syndrome without diarrhea K58.9 confirmed 23101531 Problem History of gestational diabetes Z86.32 confirmed 645098104 Problem GERD (gastroesopha geal reflux disease) K21.9 confirmed 069631175 Problem Infertility, female N97.9 confirmed 8761312 Problem Prediabetes R73.03 confirmed 9023600 02 Problem Iron deficiency anemia secondary to inadequate dietary iron intake D50.8 confirmed 304387043 Problem Gastroesophag eal reflux disease, unspecified whether esophagitis present K21.9 confirmed 523502927 ALLERGIES Allergen (clinical drug ingredient) Drug/Non Drug Allergy documented on EMR Reaction Allergy Type Onset Date Status penicillin V Penicillin V Potassium([facility] Code:[address]-61 ) unsure of reaction Drug Allergy Active ENCOUNTERS from 1988 to 2023-01-08 Encounter Location Date Provider Diagnosis [facility] [place] [address] [id number] [place] [address] Jan, DAVIDE COOL IMMUNIZATIONS Vaccine Route Administration Date [...] Date End Date Status Gummies Act helder Iron 240 (27 Fe) MG 1 tablet [...] Next Appt Details Provider Name:TERI PERAZA , 2023-01-31 05:40:00 PM, [address] [facility], [place], [address], Provider Name:DAVIDE VALDOVINOS , 2023-02-16 02:00:00 PM, [address], [id number], [place], [address], Insurance Providers Payer Name Payer Address Payer Phone Insured Name Patient Relationship to Insured Coverage Start Date Coverage End Date Subscriber Number Group Number BCBS OF [place] [id number] [place] [id number] [phone] Floyd Hedrick Self - patient is the insured [id number]
--- OUTSIDE RECORDS SUMMARY | 2023-04-24 08:32 | XMS REPORT ---
Author Author [facility] ter of [facility] ter of [facility] Address Unknown Phone Unavailable Care Team Providers Care Access Lead Name Role Phone DAVIDE COOL Unavailable PROBLEMS Type Condition ICD9-CM Code TEY59-TD Code Onset Dates Condition Status W/U Status Risk SNOMED Code Notes Problem care in second trimester Z34.92 Problem resolved confirmed 028045482 Problem care in third trimester Z34.93 Problem resolved confirmed 132326427 Problem 32 weeks gestation of Z3A.32 Problem resolved confirmed 3692771 Problem Vaginal discharge N89.8 Problem resolved confirmed 176042951 Problem Late menses N92.6 confirmed 66448198 Problem 28 weeks gestation of Z3A.28 Problem resolved confirmed 08373080 Problem Irritable bowel syndrome without diarrhea K58.9 confirmed 56081820 Problem Acne, unspecified L70.9 confirmed 31257374 Problem Infertility, female N97.9 confirmed 3249649 Problem Current moderate episode of major depressive disorder without prior episode F32.1 confirmed 77352518 Problem Late period N92.6 confirmed 94915352 Problem History of gestational diabetes Z86.32 confirmed 545839999 Problem BMI 36.0-36.9,oren lt Z68.36 confirmed 649355965 Problem Generalized anxiety disorder F41.1 confirmed 07204473 Problem GERD (gastroesopha geal reflux disease) K21.9 confirmed 902868504 Problem Prediabetes R73.03 confirmed 9682144 02 Problem Iron deficiency anemia secondary to inadequate dietary iron intake D50.8 confirmed 754754971 Problem Gastroesophag eal reflux disease, unspecified whether esophagitis present K21.9 confirmed 719982785 Problem care in first trimester Z34.91 confirm 446571675 ALLERGIES Allergen (clinical drug ingredient) Drug/Non Drug Allergy documented on EMR Reaction Allergy Type Onset Date Status penicillin V Penicillin V Potassium([facility] Code:[address]-17 ) unsure of reaction Drug Allergy Active ENCOUNTERS from 1988 to 2023-04-10 Encounter Location Date Provider Diagnosis [facility] [address] [place] [address] Apr, DAVIDE COOL IMMUNIZATIONS Vaccine Route Administration Date Status PRIVATE FLU 23-24 (FLULAVAL) 6MO & UP IM Intramuscular Feb 28, 2023 Administered Booster PFIZER, COVID-19, 0.3mL IM Intramuscular May 122020 Administered PRIVATE FLULAVAL QUAD 0.5ML (6 MO AND UP) 2020 IM Intramuscular Mar 24, 2021 Administered COVID-19 Moderna (history) Unknown September 17, 2020 Administered COVID-19 Moderna (history) Unknown August 19, 2020 Administered PRIVATE FLULAVAL QUAD 0.5ML (6 MO AND UP) 2019 Unknown Apr 01, 2020 Others PRIVATE TDAP (BOOSTRIX) IM Intramuscular Feb 28, 2023 Administered PRIVATE TDAP (BOOSTRIX) IM Intramuscular Jun 14, [...] Vitro for 30 days For Glucocard Shinromel Garayviviana May, Active Gummies Act helder Iron 240 (27 Fe) MG 1 tablet with water or juice between meals Orally Once a day Active Sertraline HCl 50 MG 1 tablet Orally Once a day for 30 days Feb, Active Lancets - use to test blood sugar 4 times daily for 30 days Mar, Active REASON FOR VISIT Ultrasound MEDICAL (GENERAL) HISTORY Type Description Date Medical [...] MENTAL STATUS No Information PLAN OF TREATMENT No Information Insurance Providers Payer Name Payer Address Payer Phone Insured Name Patient Relationship to Insured Coverage Start Date Coverage End Date Subscriber Number Group Number BCBS OF [place] [address] [facility] [id number] Floyd Hedrick Self - patient is the insured [id number]
--- OUTSIDE RECORDS SUMMARY | 2023-04-24 08:32 | XMS REPORT ---
Author Author [facility] ter of [facility] ter of [facility] Address Unknown Phone Unavailable Care Team Providers Care Casket Upholsterer Name Role Phone DAVIDE COOL Unavailable PROBLEMS Type Condition ICD9-CM Code TCJ73-ES Code Onset Dates Condition Status W/U Status Risk SNOMED Code Notes Problem care in second trimester Z34.92 Problem resolved confirmed 010948467 Problem care in third trimester Z34.93 Problem resolved confirmed 006355191 Problem 32 weeks gestation of Z3A.32 Problem resolved confirmed 7061886 Problem Vaginal discharge N89.8 Problem resolved confirmed 182611230 Problem Late menses N92.6 confirmed 94132584 Problem 28 weeks gestation of Z3A.28 Problem resolved confirmed 84830039 Problem Irritable bowel syndrome without diarrhea K58.9 confirmed 00951014 Problem Acne, unspecified L70.9 confirmed 46896560 Problem Infertility, female N97.9 confirmed 2333495 Problem Current moderate episode of major depressive disorder without prior episode F32.1 confirmed 16077570 Problem Late period N92.6 confirmed 88099428 Problem History of gestational diabetes Z86.32 confirmed 765528324 Problem BMI 36.0-36.9,oren lt Z68.36 confirmed 133892524 Problem Generalized anxiety disorder F41.1 confirmed 18901691 Problem GERD (gastroesopha geal reflux disease) K21.9 confirmed 271385266 Problem Prediabetes R73.03 confirmed 7362378 02 Problem Iron deficiency anemia secondary to inadequate dietary iron intake D50.8 confirmed 613845838 Problem Gastroesophag eal reflux disease, unspecified whether esophagitis present K21.9 confirmed 252803300 Problem care in first trimester Z34.91 confirm 136033635 ALLERGIES Allergen (clinical drug ingredient) Drug/Non Drug Allergy documented on EMR Reaction Allergy Type Onset Date Status penicillin V Penicillin V Potassium([facility] Code:[address]-81 ) unsure of reaction Drug Allergy Active ENCOUNTERS from 1988 to 2023-03-28 Encounter Location Date Provider Diagnosis [facility] [address] [place] [address] Mar, DAVIDE COOL care in second trimester Z34.92 [...] In Vitro for 30 days For Glucocard Eduardo Pressley May, Active Gummies Act helder Iron 240 (27 Fe) MG 1 tablet with water or juice between meals Orally Once a day Active Sertraline HCl 50 MG 1 tablet Orally Once a day for 30 days Feb, Active Lancets - use to test blood sugar 4 times daily for 30 days Mar, Active REASON FOR VISIT U/S OB >14 weeks- Keyla Francois RT(R)(M)RDMS,RVT MEDICAL (GENERAL) HISTORY Type [...] Notes Treatment Notes Treatment Clinical Notes Mar, care in second trimester (ICD-10 - Z34.92) PLAN OF TREATMENT No Information Insurance Providers Payer Name Payer Address Payer Phone Insured Name Patient Relationship to Insured Coverage Start Date Coverage End Date Subscriber Number Group Number BCBS OF [place] [address] [facility] [id number] [phone] Floyd Hedrick Self - patient is the insured [id number]
--- OUTSIDE RECORDS SUMMARY | 2023-04-24 08:32 | XMS REPORT ---
Author Author [facility] ter of [facility] ter of [facility] Address Unknown Phone Unavailable Care Team Providers Care Steamtable Attendant Railroad Name Role Phone TRACY CHRISTINE Unavailable PROBLEMS Type Condition ICD9-CM Code AKQ47-EU Code Onset Dates Condition Status W/U Status Risk SNOMED Code Notes Problem care in third trimester Z34.93 Problem resolved confirmed 468281145 Problem Vaginal discharge N89.8 Problem resolved confirmed 554640416 Problem care in second trimester Z34.92 Problem resolved confirmed 851079083 Problem 28 weeks gestation of Z3A.28 Problem resolved confirmed 61523862 Problem 32 weeks gestation of Z3A.32 Problem resolved confirmed 6185906 Problem Acne, unspecified L70.9 confirmed 66322795 Problem Late menses N92.6 confirmed 76502589 Problem BMI 36.0-36.9,oren lt Z68.36 confirmed 966141549 Problem Current moderate episode of major depressive disorder without prior episode F32.1 confirmed 95738268 Problem Late period N92.6 confirmed 16164898 Problem care in first trimester Z34.91 confirm 150605848 Problem Irritable bowel syndrome without diarrhea K58.9 confirmed 48862558 Problem History of gestational diabetes Z86.32 confirmed 201497977 Problem GERD (gastroesopha geal reflux disease) K21.9 confirmed 572394020 Problem Infertility, female N97.9 confirmed 0045653 Problem Prediabetes R73.03 confirmed 2705424 02 Problem Iron deficiency anemia secondary to inadequate dietary iron intake D50.8 confirmed 789656925 Problem Gastroesophag eal reflux disease, unspecified whether esophagitis present K21.9 confirmed 306147725 ALLERGIES Allergen (clinical drug ingredient) Drug/Non Drug Allergy documented on EMR Reaction Allergy Type Onset Date Status penicillin V Penicillin V Potassium([facility] Code:[address]-17 ) unsure of reaction Drug Allergy Active ENCOUNTERS from 1988 to 2023-01-04 Encounter Location Date Provider Diagnosis [facility] [address] [facility] [id number] [place] [address] Jan, TRACY CHRISTINE Vaginal yeast infection B37.3 IMMUNIZATIONS Vaccine Route Administration Date Status Booster [...] No Information VITAL SIGNS Height 38.19 in Jan, Height-cm 97 cm Jan, Weight 247 lbs Jan, Weight-kg 112.04 kg Jan, Temperature 97 degrees Fahrenheit Jan, Heart Rate 97 bpm Jan, Respiratory Rate 20 bpm Jan, Oximetry 97 % Jan, Blood pressure systolic 117 mmHg Jan, Blood pressure diastolic 70 mmHg Jan, MEDICATIONS Medication SIG (Take, Route, Fr equency, Duration) Notes Start Date End Date Status Gummies Act helder Iron 240 (27 Fe) MG 1 tablet with water or juice between meals Orally Once a day Active REASON FOR VISIT 13 weeks - discomfort in personal areas, pt states nipples and clitoris is very itchy and swollen also whitish flim/discharge jim-shaun, meds verbally verified MEDICAL (GENERAL) HISTORY Type Description Date Medical [...] Notes Treatment Notes Treatment Clinical Notes Jan, Vaginal yeast infection (ICD-10 - B37.3) Jan, Other Medications as directed, supportive care and monitoring, rest as able, push fluids to maintain hydration. Office visit it not improving. Patient verbalized understanding of above instructions. PLAN OF TREATMENT Next Appt Details if not improving with PCP or reg follow up Reason: Provider Name:TERI PERAZA , 2023-01-31 05:40:00 PM, [address] , [place], [address], Provider Name:DAVIDE VALDOVINOS H, 2023-02-16 02:00:00 PM, [address] [facility], [id number], [place], [address], Insurance Providers Payer Name Payer Address Payer Phone Insured Name Patient Relationship to Insured Coverage Start Date Coverage End Date Subscriber Number Group Number [facility]BS [facility] [address] [facility] [id number] Floyd Hedrick Self - patient is the insured [id number]
--- OUTSIDE RECORDS SUMMARY | 2023-04-24 08:32 | XMS REPORT ---
Author Author [facility] ter of [facility] ter of [facility] Address Unknown Phone Unavailable Care Team Providers Care Motor And Chassis Inspector Name Role Phone DAVIDE COOL Unavailable PROBLEMS Type Condition ICD9-CM Code FCN03-BA Code Onset Dates Condition Status W/U Status Risk SNOMED Code Notes Problem care in third trimester Z34.93 Problem resolved confirmed 792117230 Problem Vaginal discharge N89.8 Problem resolved confirmed 348149350 Problem care in second trimester Z34.92 Problem resolved confirmed 682130827 Problem 28 weeks gestation of Z3A.28 Problem resolved confirmed 71658602 Problem 32 weeks gestation of Z3A.32 Problem resolved confirmed 7908612 Problem Acne, unspecified L70.9 confirmed 65728233 Problem Late menses N92.6 confirmed 45036243 Problem BMI 36.0-36.9,oren lt Z68.36 confirmed 771770351 Problem Current moderate episode of major depressive disorder without prior episode F32.1 confirmed 49106929 Problem Late period N92.6 confirmed 28152192 Problem care in first trimester Z34.91 confirm 250665595 Problem Irritable bowel syndrome without diarrhea K58.9 confirmed 27433063 Problem History of gestational diabetes Z86.32 confirmed 677327015 Problem GERD (gastroesopha geal reflux disease) K21.9 confirmed 597934109 Problem Infertility, female N97.9 confirmed 3901158 Problem Prediabetes R73.03 confirmed 4503019 02 Problem Iron deficiency anemia secondary to inadequate dietary iron intake D50.8 confirmed 294802371 Problem Gastroesophag eal reflux disease, unspecified whether esophagitis present K21.9 confirmed 980580774 ALLERGIES Allergen (clinical drug ingredient) Drug/Non Drug Allergy documented on EMR Reaction Allergy Type Onset Date Status penicillin V Penicillin V Potassium([facility] Code:[address]-82 ) unsure of reaction Drug Allergy Active ENCOUNTERS from 1988 to 2023-01-06 Encounter Location Date Provider Diagnosis [facility] [address] [facility] [id number] [place] [address] Jan, 2021 DAVIDE TRAVON Vaginal discharge N89.8 IMMUNIZATIONS Vaccine Route Administration Date Status Booster [...] Once a day Active REASON FOR VISIT Telephone Encounter 01/27/2021 please MEDICAL (GENERAL) HISTORY Type Description Date Medical [...] Treatment Notes Treatment Clinical Notes Jan, Vaginal discharge (ICD-10 - N89.8) PLAN OF TREATMENT Next Appt Details Provider Name:TERI PERAZA , 2023-01-31 05:40:00 PM, [address], [place], [address], Provider Name:DAVIDE VALDOVINOS , 2023-02-16 02:00:00 PM, [address] [facility], [id number], [place], [address], Insurance Providers Payer Name Payer Address Payer Phone Insured Name Patient Relationship to Insured Coverage Start Date Coverage End Date Subscriber Number Group Number BCBS OF [id number] [facility] [id number] [phone] Floyd Hedrick Self - patient is the insured [id number]
--- OUTSIDE RECORDS SUMMARY | 2023-04-24 08:32 | XMS REPORT ---
Author Author [facility] ter of [facility] ter of [facility] Address Unknown Phone Unavailable Care Team Providers Care Artificial Breeding Ranch Supervisor Name Role Phone DAVIDE COOL Unavailable PROBLEMS Type Condition ICD9-CM Code CRE22-PV Code Onset Dates Condition Status W/U Status Risk SNOMED Code Notes Problem care in second trimester Z34.92 Problem resolved confirmed 747194536 Problem care in third trimester Z34.93 Problem resolved confirmed 263119606 Problem 32 weeks gestation of Z3A.32 Problem resolved confirmed 3607463 Problem Vaginal discharge N89.8 Problem resolved confirmed 715681761 Problem Late menses N92.6 confirmed 81205893 Problem 28 weeks gestation of Z3A.28 Problem resolved confirmed 35493615 Problem Irritable bowel syndrome without diarrhea K58.9 confirmed 18799973 Problem Acne, unspecified L70.9 confirmed 90703306 Problem Infertility, female N97.9 confirmed 5463521 Problem Current moderate episode of major depressive disorder without prior episode F32.1 confirmed 76870068 Problem Late period N92.6 confirmed 27588904 Problem History of gestational diabetes Z86.32 confirmed 730255999 Problem BMI 36.0-36.9,oren lt Z68.36 confirmed 633765135 Problem Generalized anxiety disorder F41.1 confirmed 92287146 Problem GERD (gastroesopha geal reflux disease) K21.9 confirmed 687100547 Problem Prediabetes R73.03 confirmed 4312044 02 Problem Iron deficiency anemia secondary to inadequate dietary iron intake D50.8 confirmed 258396666 Problem Gastroesophag eal reflux disease, unspecified whether esophagitis present K21.9 confirmed 902605137 Problem care in first trimester Z34.91 confirm 219162897 ALLERGIES Allergen (clinical drug ingredient) Drug/Non Drug Allergy documented on EMR Reaction Allergy Type Onset Date Status penicillin V Penicillin V Potassium([facility] Code:[address]-56 ) unsure of reaction Drug Allergy Active ENCOUNTERS from 1988 to 2023-04-09 Encounter Location Date Provider Diagnosis [facility] [address] [place] [address] Apr, DAVIDE COOL Second trimester Z34.92 ; 24 weeks gestation of Z3A.24 ; Other specified related conditions, second trimester O26.892 and Pelvic and perineal pain R10.2 IMMUNIZATIONS Vaccine Route Administration Date Status PRIVATE TDAP (BOOSTRIX) IM Intramuscular Jun 14, 2021 Administered PRIVATE FLULAVAL QUAD 0.5ML (6 MO AND UP) 2019 Unknown Apr 01, 2020 Others COVID-19 Moderna (history) Unknown August 19, 2020 Administered COVID-19 Moderna (history) Unknown September 17, 2020 Administered PRIVATE TDAP (BOOSTRIX) IM Intramuscular Feb [...] Total PHQ2 Score 0 REASON FOR REFERRAL from 1988 to 2023-04-09 Reason Pelvic pain in pregn aptrick Diagnosis 1 Other specified preg isreal related conditions, second trimester (O26.892) Referral Organization [facility] Referring Provider First Name DAVIDE Referring Provider Last Name TRAVON Referring Provider Specialty Family Prac meredith Referred Organization [facility] Referred Provider DEONNA ROME Referred Address [address] [facility],[address] Referred Provider Specialty Physical The rapist Referral Priority Routine Referral Appointment Date 2021-06-24 General Notes Waylon Noonan 04/13 03:59:28 PM >no VM on primary, called cell and call dropped, sent eMsg Waylon Noonan 04/13/2021 04:02:40 PM >scheduled 04/28 Waylon Noonan 04/29/2021 11:32:09 AM >scheduled 05/14 Waylon Noonan 05/17/2021 11:57:27 AM >scheduled 05/21 Shaista, Waylon 05/24/2021 09:00:33 AM >scheduled 06/16 Waylon Noonan 06/17/2021 09:57:59 AM >dr castillo 06/16. Left message with to r/s on 06/15. Called home and cell to r/s Waylon Noonan 06/17/2021 10:18:12 AM >scheduled 06/24 Waylon Noonan 06/28/2021 03:00:17 PM >dr castillo 06/24. called both numbers on file, no VM. sent sms to r/s appt VITAL SIGNS Height 38.19 in Apr, Height-cm 97 cm Apr, Weight 240.2 lbs Apr, Weight-kg 108.95 kg Apr, Temperature 97.5 degrees Fahrenheit Apr, Heart Rate 99 bpm Apr, Respiratory Rate 18 bpm Apr, Oximetry 98 % Apr, BMI 115.791 kg/m2 Apr, Blood pressure systolic 108 mmHg Apr, Blood pressure diastolic 68 mmHg Apr, MEDICATIONS Medication SIG (Take, Route, Frequency, Duration) Notes Start Date End Date Status Ferrous Sulfate 325 (65 Fe) MG 1 tablet Orally Three times a Week for 30 days Jan, Active Blood Glucose Test - 4 times daily In Vitro for 30 days For Glucocard Eduardo Garayex May, Active Gummies Act helder Iron 240 (27 Fe) MG 1 tablet with water or juice between meals Orally Once a day Active Sertraline HCl 50 MG 1 tablet Orally Once a day for 30 days Feb, Active Lancets - use to test blood sugar 4 times daily for 30 days Mar, Active REASON FOR VISIT OB f/u-pt states she has a list of symptoms to share with provider-shaun figueroa, OB dip. M[facility] MEDICAL (GENERAL) HISTORY Type Description [...] Assessment Notes Treatment Notes Treatment Clinical Notes Apr, Second trimester (ICD-10 - Z34.92) Apr, 24 weeks gestation of (ICD-10 - Z3A.24) Weeks 22 to 26 of Your : Care Instructions material was published Apr, Other specified related conditions, second trimester (ICD-10 - O26.892) Apr, Pelvic and perineal pain (ICD-10 - R10.2) PLAN OF TREATMENT Treatment Notes Assessment Notes Clinical Notes 24 weeks gestation of Weeks 22 to 26 of Your : Care Instructions material was published Referrals Referral Date Details 2021-06-24 2021-06-24, Pelvic p ain in , DEONNA LATRICIA, [address] [place], [address], Next Appt Details 4 Weeks, 4 Weeks, 4 Weeks Re ason: Insurance Providers Payer Name Payer Address Payer Phone Insured Name Patient Relationship to Insured Coverage Start Date Coverage End Date Subscriber Number Group Number BCBS OF [place] [address] [place] [id number] Floyd Hedrick Self - patient is the insured [id number]
--- OUTSIDE RECORDS SUMMARY | 2023-04-24 08:32 | XMS REPORT ---
Author Author Formerly [facility] ter of [facility] ter of [facility] Address Unknown Phone Unavailable Care Team Providers Care Assistant Strength Coach Name Role Phone DAVIDE COOL Unavailable PROBLEMS Type Condition ICD9-CM Code WEV44-[id number] Code Onset Dates Condition Status W/U Status Risk SNOMED Code Notes Problem care in third trimester Z34.93 Problem resolved confirmed 577740174 Problem Vaginal discharge N89.8 Problem resolved confirmed 184421476 Problem care in second trimester Z34.92 Problem resolved confirmed 171380160 Problem 28 weeks gestation of Z3A.28 Problem resolved confirmed 63201831 Problem 32 weeks gestation of Z3A.32 Problem resolved confirmed 8474959 Problem Acne, unspecified L70.9 confirmed 20819687 Problem Late menses N92.6 confirmed 43545077 Problem BMI 36.0-36.9,oren lt Z68.36 confirmed 257297489 Problem Current moderate episode of major depressive disorder without prior episode F32.1 confirmed 92173955 Problem Late period N92.6 confirmed 36087382 Problem care in first trimester Z34.91 confirm 902704765 Problem Irritable bowel syndrome without diarrhea K58.9 confirmed 03508833 Problem History of gestational diabetes Z86.32 confirmed 922943551 Problem GERD (gastroesopha geal reflux disease) K21.9 confirmed 892045363 Problem Infertility, female N97.9 confirmed 9018728 Problem Prediabetes R73.03 confirmed 7590033 02 Problem Iron deficiency anemia secondary to inadequate dietary iron intake D50.8 confirmed 942426315 Problem Gastroesophag eal reflux disease, unspecified whether esophagitis present K21.9 confirmed 684892942 ALLERGIES Allergen (clinical drug ingredient) Drug/Non Drug Allergy documented on EMR Reaction Allergy Type Onset Date Status penicillin V Penicillin V Potassium([facility] Code:[address]-19 ) unsure of reaction Drug Allergy Active ENCOUNTERS from 1988 to 2022-12-05 Encounter Location Date Provider [facility] [address] [id number] [place] [address] Dec, DAVIDE COOL Vaginal bleeding affecting early O20.8 IMMUNIZATIONS Vaccine Route Administration Date Status Booster [...] Once a day Active REASON FOR VISIT lab MEDICAL (GENERAL) HISTORY Type Description Date Medical [...] Assessment Notes Treatment Notes Treatment Clinical Notes Dec, Vaginal bleeding affecting early (ICD-10 - O20.8) PLAN OF TREATMENT Next Appt Details Provider Name:DAVIDE VALDOVINOS , 2023-01-03 09:00:00 AM, [address] [facility], [id number], [place], [address], Insurance Providers Payer Name Payer Address Payer Phone Insured Name Patient Relationship to Insured Coverage Start Date Coverage End Date Subscriber Number Group Number BC[place] OF [place] [address] [facility] [id number] [phone] Floyd Hedrick Self - patient is the insured [id number]
--- OUTSIDE RECORDS SUMMARY | 2023-04-24 08:32 | XMS REPORT ---
Author Author [facility] ter of [facility] ter of [facility] Address Unknown Phone Unavailable Care Team Providers Care Merchant Seaman Name Role Phone DEONNA Morrison Unavailable [phone] PROBLEMS Type Condition ICD9-CM Code GVP28-YC Code Onset Dates Condition Status W/U Status Risk SNOMED Code Notes Problem care in third trimester Z34.93 Problem resolved confirmed 951647170 Problem Vaginal discharge N89.8 Problem resolved confirmed 591159132 Problem care in second trimester Z34.92 Problem resolved confirmed 942371189 Problem 28 weeks gestation of Z3A.28 Problem resolved confirmed 02084922 Problem 32 weeks gestation of Z3A.32 Problem resolved confirmed 6296260 Problem Acne, unspecified L70.9 confirmed 33330605 Problem Late menses N92.6 confirmed 49602210 Problem BMI 36.0-36.9,oren lt Z68.36 confirmed 699552500 Problem Current moderate episode of major depressive disorder without prior episode F32.1 confirmed 57985580 Problem Late period N92.6 confirmed 02140200 Problem care in first trimester Z34.91 confirm 672639006 Problem Irritable bowel syndrome without diarrhea K58.9 confirmed 44166548 Problem History of gestational diabetes Z86.32 confirmed 452916077 Problem GERD (gastroesopha geal reflux disease) K21.9 confirmed 149084271 Problem Infertility, female N97.9 confirmed 5755667 Problem Prediabetes R73.03 confirmed 1808781 02 Problem Iron deficiency anemia secondary to inadequate dietary iron intake D50.8 confirmed 013059104 Problem Gastroesophag eal reflux disease, unspecified whether esophagitis present K21.9 confirmed 517445429 ALLERGIES Allergen (clinical drug ingredient) Drug/Non Drug Allergy documented on EMR Reaction Allergy Type Onset Date Status penicillin V Penicillin V Potassium([facility] Code:[address]-58 ) unsure of reaction Drug Allergy Active ENCOUNTERS from 1988 to 2022-11-09 Encounter Location Date Provider Diagnosis [facility] [address] [facility] [id number] [place] [address] Nov, DEONNA Morrison Encounter for test Z32.00 IMMUNIZATIONS Vaccine Route Administration Date Status PRIVATE TDAP (BOOSTRIX) IM Intramuscular Jun 14, 2021 Administered Booster PFIZER, COVID-19, 0.3mL IM [...] Score 0 REASON FOR REFERRAL No Information REASON FOR VISIT Lab (walk-in) MEDICAL (GENERAL) HISTORY Type Description Date Medical [...] Assessment Notes Treatment Notes Treatment Clinical Notes Nov, Encounter for test (ICD-10 - Z32.00) PLAN OF TREATMENT Next Appt Details Provider Name:TERI PERAZA , 2022-11-09 05:20:00 PM, [address] , [place], [address], Insurance Providers Payer Name Payer Address Payer Phone Insured Name Patient Relationship to Insured Coverage Start Date Coverage End Date Subscriber Number Group Number [place] OF [place] [address] [facility] [phone] Floyd Hedrick Self - patient is the insured [id number]
--- OUTSIDE RECORDS SUMMARY | 2023-04-24 08:32 | XMS REPORT ---
Author Author Replaced By [facility] ter of [facility] ter of [facility] Address Unknown Phone Unavailable Care Team Providers Care Rn Neurology Name Role Phone DAVIDE COOL Unavailable PROBLEMS Type Condition ICD9-CM Code RKF57-BG Code Onset Dates Condition Status W/U Status Risk SNOMED Code Notes Problem care in third trimester Z34.93 Problem resolved confirmed 140272883 Problem Vaginal discharge N89.8 Problem resolved confirmed 375930991 Problem care in second trimester Z34.92 Problem resolved confirmed 759751942 Problem 28 weeks gestation of Z3A.28 Problem resolved confirmed 53976101 Problem 32 weeks gestation of Z3A.32 Problem resolved confirmed 4760660 Problem Acne, unspecified L70.9 confirmed 83426621 Problem Late menses N92.6 confirmed 40141497 Problem BMI 36.0-36.9,oren lt Z68.36 confirmed 669658046 Problem Current moderate episode of major depressive disorder without prior episode F32.1 confirmed 52888583 Problem Late period N92.6 confirmed 75635310 Problem care in first trimester Z34.91 confirm 218877357 Problem Irritable bowel syndrome without diarrhea K58.9 confirmed 46044037 Problem History of gestational diabetes Z86.32 confirmed 948347354 Problem GERD (gastroesopha geal reflux disease) K21.9 confirmed 887006428 Problem Infertility, female N97.9 confirmed 8781851 Problem Prediabetes R73.03 confirmed 7652304 02 Problem Iron deficiency anemia secondary to inadequate dietary iron intake D50.8 confirmed 726326785 Problem Gastroesophag eal reflux disease, unspecified whether esophagitis present K21.9 confirmed 269591543 ALLERGIES Allergen (clinical drug ingredient) Drug/Non Drug Allergy documented on EMR Reaction Allergy Type Onset Date Status penicillin V Penicillin V Potassium([facility] Code:[address]-30 ) unsure of reaction Drug Allergy Active ENCOUNTERS from 1988 to 2023-01-23 Encounter Location Date Provider Diagnosis [facility] [address] [facility] [id number] [place] [address] Jan, DAVIDE COOL IMMUNIZATIONS Vaccine Route Administration [...] Once a day Active REASON FOR VISIT Lab results MEDICAL (GENERAL) HISTORY Type Description Date Medical [...] PERAZA , 2023-01-31 05:40:00 PM, [address] [facility], [place], [address], Provider Name:DAVIDE VALDOVINOS , 2023-02-16 02:00:00 PM, [address] [facility], [id number], [place], [address], Insurance Providers Payer Name Payer Address Payer Phone Insured Name Patient Relationship to Insured Coverage Start Date Coverage End Date Subscriber Number Group Number BCBS OF [place] [address] [facility] [id number] Floyd Hedrick Self - patient is the insured [id number]
--- OUTSIDE RECORDS SUMMARY | 2023-04-24 08:32 | XMS REPORT ---
Author Author [facility] ter of [facility] ter of [facility] Address Unknown Phone Unavailable Care Team Providers Care Power Lineworker Name Role Phone DAVIDE COOL Unavailable PROBLEMS ALLERGIES ENCOUNTERS from 1988 to 2022-11-15 IMMUNIZATIONS SOCIAL HISTORY No smoking Hx information available REASON FOR REFERRAL No Information MEDICATIONS REASON FOR VISIT MEDICAL (GENERAL) HISTORY MENTAL STATUS PLAN OF TREATMENT Insurance Providers
--- OUTSIDE RECORDS SUMMARY | 2023-04-24 08:32 | XMS REPORT ---
Author Author [facility] ter of [facility] Address Unknown Phone Unavailable Care Team Providers Care Automobile Club Membership Sales Agent Name Role Phone DAVIDE COOL Unavailable PROBLEMS Type Condition ICD9-CM Code BAR06-FP Code Onset Dates Condition Status W/U Status Risk SNOMED Code Notes Problem care in third trimester Z34.93 Problem resolved confirmed 629601860 Problem Vaginal discharge N89.8 Problem resolved confirmed 301732781 Problem care in second trimester Z34.92 Problem resolved confirmed 901157566 Problem 28 weeks gestation of Z3A.28 Problem resolved confirmed 82233705 Problem 32 weeks gestation of Z3A.32 Problem resolved confirmed 4323651 Problem Acne, unspecified L70.9 confirmed 57711832 Problem Late menses N92.6 confirmed 43582325 Problem BMI 36.0-36.9,oren lt Z68.36 confirmed 196907874 Problem Current moderate episode of major depressive disorder without prior episode F32.1 confirmed 73939381 Problem Late period N92.6 confirmed 07930941 Problem care in first trimester Z34.91 confirm 053643746 Problem Irritable bowel syndrome without diarrhea K58.9 confirmed 92751107 Problem History of gestational diabetes Z86.32 confirmed 098133009 Problem GERD (gastroesopha geal reflux disease) K21.9 confirmed 144384855 Problem Infertility, female N97.9 confirmed 1051523 Problem Prediabetes R73.03 confirmed 3359264 02 Problem Iron deficiency anemia secondary to inadequate dietary iron intake D50.8 confirmed 306441770 Problem Gastroesophag eal reflux disease, unspecified whether esophagitis present K21.9 confirmed 726528449 ALLERGIES Allergen (clinical drug ingredient) Drug/Non Drug Allergy documented on EMR Reaction Allergy Type Onset Date Status penicillin V Penicillin V Potassium([facility] Code:[address]-01 ) unsure of reaction Drug Allergy Active ENCOUNTERS from 1988 to 2022-12-07 Encounter Location Date [facility] [address] [id number] [place] [address] Dec, DAVIDE COOL Vaginal bleeding affecting early O20.8 IMMUNIZATIONS Vaccine Route Administration Date Status PRIVATE [...] Once a day Active REASON FOR VISIT No Information MEDICAL (GENERAL) HISTORY Type Description Date Medical [...] OF TREATMENT Next Appt Details Provider Name:DAVIDE Gustafson, 2022-12-12 03:00:00 PM, [address] , [place], [address], Provider Name:DAVIDE Gustafson, 2023-01-03 09:00:00 AM, [address] [facility], [id number], [place], [address], Insurance Providers Payer Name Payer Address Payer Phone Insured Name Patient Relationship to Insured Coverage Start Date Coverage End Date Subscriber Number Group Number BCBS OF [place] [address] [facility] [id number] Floyd Hedrick Self - patient is the insured [id number]
--- OUTSIDE RECORDS SUMMARY | 2023-04-24 08:32 | XMS REPORT ---
Author Author [facility] ter of [facility] ter of [facility] Address Unknown Phone Unavailable Care Team Providers Care Dough Puncher Name Role Phone DEONNA Morrison Unavailable PROBLEMS Type Condition ICD9-CM Code RZW31-VR Code Onset Dates Condition Status W/U Status Risk SNOMED Code Notes Problem care in third trimester Z34.93 Problem resolved confirmed 196594261 Problem Vaginal discharge N89.8 Problem resolved confirmed 984768896 Problem care in second trimester Z34.92 Problem resolved confirmed 589531051 Problem 28 weeks gestation of Z3A.28 Problem resolved confirmed 26062434 Problem 32 weeks gestation of Z3A.32 Problem resolved confirmed 6023886 Problem Acne, unspecified L70.9 confirmed 38404108 Problem Late menses N92.6 confirmed 82883021 Problem BMI 36.0-36.9,oren lt Z68.36 confirmed 672541042 Problem Current moderate episode of major depressive disorder without prior episode F32.1 confirmed 68416897 Problem Late period N92.6 confirmed 40873969 Problem care in first trimester Z34.91 confirm 406960968 Problem Irritable bowel syndrome without diarrhea K58.9 confirmed 80273170 Problem History of gestational diabetes Z86.32 confirmed 133793738 Problem GERD (gastroesopha geal reflux disease) K21.9 confirmed 257073694 Problem Infertility, female N97.9 confirmed 7787789 Problem Prediabetes R73.03 confirmed 7627170 02 Problem Iron deficiency anemia secondary to inadequate dietary iron intake D50.8 confirmed 525143260 Problem Gastroesophag eal reflux disease, unspecified whether esophagitis present K21.9 confirmed 938174554 ALLERGIES Allergen (clinical drug ingredient) Drug/Non Drug Allergy documented on EMR Reaction Allergy Type Onset Date Status penicillin V Penicillin V Potassium([facility] Code:[address]-39 ) unsure of reaction Drug Allergy Active ENCOUNTERS from 1988 to 2023-01-08 Encounter Location Date Provider Diagnosis [facility] [address] [facility] [id number] [place] [address] Jan, DEONNA Morrison IMMUNIZATIONS Vaccine Route Administration Date [...] PERAZA , 2023-01-31 05:40:00 PM, [address] , [place], [address], Provider Name:DAVIDE VALDOVINOS , 2023-02-16 02:00:00 PM, [address] [facility], [id number], [place], [address], Insurance Providers Payer Name Payer Address Payer Phone Insured Name Patient Relationship to Insured Coverage Start Date Coverage End Date Subscriber Number Group Number BCBS OF [place] [address] [facility] [id number] [phone] Floyd Hedrick Self - patient is the insured [id number]
--- OUTSIDE RECORDS SUMMARY | 2023-04-24 08:32 | XMS REPORT ---
Author Author [facility] ter of [facility] ter of [facility] Address Unknown Phone Unavailable Care Team Providers Care Stopper Setter Name Role Phone DEONNA Morrison Unavailable PROBLEMS Type Condition ICD9-CM Code LTP09-OO Code Onset Dates Condition Status W/U Status Risk SNOMED Code Notes Problem care in third trimester Z34.93 Problem resolved confirmed 796420899 Problem Vaginal discharge N89.8 Problem resolved confirmed 954296294 Problem care in second trimester Z34.92 Problem resolved confirmed 451142551 Problem 28 weeks gestation of Z3A.28 Problem resolved confirmed 45923027 Problem 32 weeks gestation of Z3A.32 Problem resolved confirmed 7750364 Problem Acne, unspecified L70.9 confirmed 92576071 Problem Late menses N92.6 confirmed 76583339 Problem BMI 36.0-36.9,oren lt Z68.36 confirmed 373788067 Problem Current moderate episode of major depressive disorder without prior episode F32.1 confirmed 39440751 Problem Late period N92.6 confirmed 51290250 Problem care in first trimester Z34.91 confirm 047825472 Problem Irritable bowel syndrome without diarrhea K58.9 confirmed 10087341 Problem History of gestational diabetes Z86.32 confirmed 287829686 Problem GERD (gastroesopha geal reflux disease) K21.9 confirmed 150570073 Problem Infertility, female N97.9 confirmed 5291911 Problem Prediabetes R73.03 confirmed 3680688 02 Problem Iron deficiency anemia secondary to inadequate dietary iron intake D50.8 confirmed 890469925 Problem Gastroesophag eal reflux disease, unspecified whether esophagitis present K21.9 confirmed 725268092 ALLERGIES Allergen (clinical drug ingredient) Drug/Non Drug Allergy documented on EMR Reaction Allergy Type Onset Date Status penicillin V Penicillin V Potassium([facility] Code:[address]-04 ) unsure of reaction Drug Allergy Active ENCOUNTERS from 1988 to 2022-11-12 Encounter Location Date Provider Diagnosis [facility] [address] [facility] [id number] [place] [address] Nov, DEONNA Morrison IMMUNIZATIONS Vaccine Route Administration [...] Once a day Active REASON FOR VISIT FYI only MEDICAL (GENERAL) HISTORY Type Description Date Medical [...] PERAZA , 2022-11-30 05:20:00 PM, [address] [facility], [place], [address], Insurance Providers Payer Name Payer Address Payer Phone Insured Name Patient Relationship to Insured Coverage Start Date Coverage End Date Subscriber Number Group Number BCBS OF [place] [address] [facility] [id number] Floyd Hedrick Self - patient is the insured [id number]
--- OUTSIDE RECORDS SUMMARY | 2023-04-24 08:32 | XMS REPORT ---
Author Author [facility] ter of [facility] ter of [facility] Address Unknown Phone Unavailable Care Team Providers Care Laminator Name Role Phone AKOSUA GARCÍA Unavailable PROBLEMS Type Condition ICD9-CM Code PPI88-HZ Code Onset Dates Condition Status W/U Status Risk SNOMED Code Notes Problem care in third trimester Z34.93 Problem resolved confirmed 280985168 Problem Vaginal discharge N89.8 Problem resolved confirmed 702037631 Problem care in second trimester Z34.92 Problem resolved confirmed 185238232 Problem 28 weeks gestation of Z3A.28 Problem resolved confirmed 11802641 Problem 32 weeks gestation of Z3A.32 Problem resolved confirmed 5681971 Problem Acne, unspecified L70.9 confirmed 68167380 Problem Late menses N92.6 confirmed 64984148 Problem BMI 36.0-36.9,oren lt Z68.36 confirmed 497121047 Problem Current moderate episode of major depressive disorder without prior episode F32.1 confirmed 52179415 Problem Late period N92.6 confirmed 38852728 Problem care in first trimester Z34.91 confirm 735897262 Problem Irritable bowel syndrome without diarrhea K58.9 confirmed 15436904 Problem History of gestational diabetes Z86.32 confirmed 519703661 Problem GERD (gastroesopha geal reflux disease) K21.9 confirmed 475097655 Problem Infertility, female N97.9 confirmed 3108038 Problem Prediabetes R73.03 confirmed 0748865 02 Problem Iron deficiency anemia secondary to inadequate dietary iron intake D50.8 confirmed 459406357 Problem Gastroesophag eal reflux disease, unspecified whether esophagitis present K21.9 confirmed 198158283 ALLERGIES Allergen (clinical drug ingredient) Drug/Non Drug Allergy documented on EMR Reaction Allergy Type Onset Date Status penicillin V Penicillin V Potassium([facility] Code:[address]-34 ) unsure of reaction Drug Allergy Active ENCOUNTERS from 1988 to 2022-12-11 Encounter Location Date Provider Diagnosis [facility] [address] [facility] [id number] [place] [address] Dec, AKOSUAMarcos GARCÍA Vaginal bleeding affecting early O20.8 IMMUNIZATIONS Vaccine Route Administration Date Status PRIVATE FLULAVAL QUAD 0.5ML (6 MO AND UP) 2020 IM Intramuscular Mar 24, 2021 Administered PRIVATE TDAP (BOOSTRIX) IM Intramuscular Jun [...] Once a day Active REASON FOR VISIT U/S OB < 14 weeks- Keyla Francois RT(R)(M)RDMS,RVT MEDICAL (GENERAL) HISTORY [...] Name:DAVIDE Gustafson, 2022-12-12 03:00:00 PM, [address] [facility], [place], [address], Provider Name:DAVIDE Gustafson, 2023-01-03 09:00:00 AM, [address] [facility], [id number], [place], [address], Insurance Providers Payer Name Payer Address Payer Phone Insured Name Patient Relationship to Insured Coverage Start Date Coverage End Date Subscriber Number Group Number BCBS OF [place] [address] [facility] [id number] [phone] Floyd Hedrick Self - patient is the insured [id number]
--- OUTSIDE RECORDS SUMMARY | 2023-04-24 08:32 | XMS REPORT ---
Author Author [facility] ter of [facility] ter of [facility] Address Unknown Phone Unavailable Care Team Providers Care Tube Carrier Name Role Phone DAVIDE COOL Unavailable PROBLEMS Type Condition ICD9-CM Code NTH26-QO Code Onset Dates Condition Status W/U Status Risk SNOMED Code Notes Problem care in third trimester Z34.93 Problem resolved confirmed 323359073 Problem Vaginal discharge N89.8 Problem resolved confirmed 365712963 Problem care in second trimester Z34.92 Problem resolved confirmed 173099404 Problem 28 weeks gestation of Z3A.28 Problem resolved confirmed 65657608 Problem 32 weeks gestation of Z3A.32 Problem resolved confirmed 2897157 Problem Acne, unspecified L70.9 confirmed 50759593 Problem Late menses N92.6 confirmed 03745223 Problem BMI 36.0-36.9,oren lt Z68.36 confirmed 388268072 Problem Current moderate episode of major depressive disorder without prior episode F32.1 confirmed 43092398 Problem Late period N92.6 confirmed 37313071 Problem care in first trimester Z34.91 confirm 068228512 Problem Irritable bowel syndrome without diarrhea K58.9 confirmed 99461050 Problem History of gestational diabetes Z86.32 confirmed 526406611 Problem GERD (gastroesopha geal reflux disease) K21.9 confirmed 513440263 Problem Infertility, female N97.9 confirmed 2556905 Problem Prediabetes R73.03 confirmed 5098055 02 Problem Iron deficiency anemia secondary to inadequate dietary iron intake D50.8 confirmed 375814994 Problem Gastroesophag eal reflux disease, unspecified whether esophagitis present K21.9 confirmed 261542615 ALLERGIES Allergen (clinical drug ingredient) Drug/Non Drug Allergy documented on EMR Reaction Allergy Type Onset Date Status penicillin V Penicillin V Potassium([facility] Code:[address]-85 ) unsure of reaction Drug Allergy Active ENCOUNTERS from 1988 to 2023-01-05 Encounter Location Date Provider Diagnosis [facility] [address] [facility] [id number] [place] [address] 18 Jan, 2021 DAVIDE COOL IMMUNIZATIONS Vaccine Route Administration Date [...] PERAZA , 2023-01-31 05:40:00 PM, [address] [facility], [place], [address], Provider Name:DAVIDE VALDOVINOS , 2023-02-16 02:00:00 PM, [address] [facility], [id number], [place], [address], Insurance Providers Payer Name Payer Address Payer Phone Insured Name Patient Relationship to Insured Coverage Start Date Coverage End Date Subscriber Number Group Number BCBS OF [place] [address] [facility] [id number] [phone] Floyd Hedrick Self - patient is the insured [id number]
--- OUTSIDE RECORDS SUMMARY | 2023-04-24 08:32 | XMS REPORT ---
Author Author [facility] ter of [facility] ter of [facility] Address Unknown Phone Unavailable Care Team Providers Care Auto Design Checker Name Role Phone DAVIDE COOL Unavailable PROBLEMS Type Condition ICD9-CM Code MYA71-QR Code Onset Dates Condition Status W/U Status Risk SNOMED Code Notes Problem care in third trimester Z34.93 Problem resolved confirmed 517360897 Problem Vaginal discharge N89.8 Problem resolved confirmed 589768008 Problem care in second trimester Z34.92 Problem resolved confirmed 312129736 Problem 28 weeks gestation of Z3A.28 Problem resolved confirmed 02356247 Problem 32 weeks gestation of Z3A.32 Problem resolved confirmed 1650900 Problem Acne, unspecified L70.9 confirmed 20959446 Problem Late menses N92.6 confirmed 45298159 Problem BMI 36.0-36.9,oren lt Z68.36 confirmed 765450740 Problem Current moderate episode of major depressive disorder without prior episode F32.1 confirmed 51144584 Problem Late period N92.6 confirmed 07890586 Problem care in first trimester Z34.91 confirm 751984476 Problem Irritable bowel syndrome without diarrhea K58.9 confirmed 83279063 Problem History of gestational diabetes Z86.32 confirmed 743518220 Problem GERD (gastroesopha geal reflux disease) K21.9 confirmed 325333878 Problem Infertility, female N97.9 confirmed 8840560 Problem Prediabetes R73.03 confirmed 3546289 02 Problem Iron deficiency anemia secondary to inadequate dietary iron intake D50.8 confirmed 956968336 Problem Gastroesophag eal reflux disease, unspecified whether esophagitis present K21.9 confirmed 208458893 ALLERGIES Allergen (clinical drug ingredient) Drug/Non Drug Allergy documented on EMR Reaction Allergy Type Onset Date Status penicillin V Penicillin V Potassium([facility] Code:[address]-95 ) unsure of reaction Drug Allergy Active ENCOUNTERS from 1988 to 2023-01-08 Encounter Location Date Provider Diagnosis [facility] [address] [facility] [id number] [place] [address] Jan, DAVIDE COOL IMMUNIZATIONS Vaccine Route Administration [...] Once a day Active REASON FOR VISIT *Appointment or Telephone Encounter MEDICAL (GENERAL) HISTORY Type Description Date Medical [...] PERAZA , 2023-01-31 05:40:00 PM, [address], [place], [address], Provider Name:DAVIDE VALDOVINOS , 2023-02-16 02:00:00 PM, [address] [facility], [id number], [place], [address], Insurance Providers Payer Name Payer Address Payer Phone Insured Name Patient Relationship to Insured Coverage Start Date Coverage End Date Subscriber Number Group Number BCBS OF [place] [address] [facility] [id number] Floyd Hedrick Self - patient is the insured [id number]
--- OUTSIDE RECORDS SUMMARY | 2023-04-24 08:32 | XMS REPORT ---
Author Author [facility] ter of [facility] ter of [facility] Address Unknown Phone Unavailable Care Team Providers Care Change Attendant Name Role Phone DAVIDE COOL Unavailable PROBLEMS Type Condition ICD9-CM Code KUC87-MJ Code Onset Dates Condition Status W/U Status Risk SNOMED Code Notes Problem care in third trimester Z34.93 Problem resolved confirmed 402115090 Problem Vaginal discharge N89.8 Problem resolved confirmed 174047180 Problem care in second trimester Z34.92 Problem resolved confirmed 325383993 Problem 28 weeks gestation of Z3A.28 Problem resolved confirmed 67369690 Problem 32 weeks gestation of Z3A.32 Problem resolved confirmed 7633688 Problem Acne, unspecified L70.9 confirmed 55006934 Problem Late menses N92.6 confirmed 73749750 Problem BMI 36.0-36.9,oren lt Z68.36 confirmed 872836090 Problem Current moderate episode of major depressive disorder without prior episode F32.1 confirmed 41687406 Problem Late period N92.6 confirmed 51461424 Problem care in first trimester Z34.91 confirm 530650964 Problem Irritable bowel syndrome without diarrhea K58.9 confirmed 87556789 Problem History of gestational diabetes Z86.32 confirmed 081893933 Problem GERD (gastroesopha geal reflux disease) K21.9 confirmed 018172619 Problem Infertility, female N97.9 confirmed 3913188 Problem Prediabetes R73.03 confirmed 2100096 02 Problem Iron deficiency anemia secondary to inadequate dietary iron intake D50.8 confirmed 120270999 Problem Gastroesophag eal reflux disease, unspecified whether esophagitis present K21.9 confirmed 528513693 ALLERGIES Allergen (clinical drug ingredient) Drug/Non Drug Allergy documented on EMR Reaction Allergy Type Onset Date Status penicillin V Penicillin V Potassium([facility] Code:[address]-04 ) unsure of reaction Drug Allergy Active ENCOUNTERS from 1988 to 2022-12-25 Encounter Location Date Provider Diagnosis [facility] [address] [facility] [id number] [place] [address] Jan, DAVIDE COOL IMMUNIZATIONS Vaccine Route Administration [...] Moderna (history) Unknown August 19, 2020 Administered SOCIAL HISTORY Sex Assigned At : [...] Once a day Active REASON FOR VISIT med refill MEDICAL (GENERAL) HISTORY Type Description Date Medical [...] VALDOVINOS , 2023-01-03 09:00:00 AM, [address] [facility], [id number], [place], [address], Insurance Providers Payer Name Payer Address Payer Phone Insured Name Patient Relationship to Insured Coverage Start Date Coverage End Date Subscriber Number Group Number BCBS OF [place] [address] [place] [phone] Floyd Hedrick Self - patient is the insured [id number]
--- OUTSIDE RECORDS SUMMARY | 2023-04-24 08:32 | XMS REPORT ---
Author Author [facility] ter of [facility] ter of [facility] Address Unknown Phone Unavailable Care Team Providers Care Nurse Discharge Planner Name Role Phone AKOSUA GARCÍA Unavailable PROBLEMS Type Condition ICD9-CM Code ZXU02-YM Code Onset Dates Condition Status W/U Status Risk SNOMED Code Notes Problem care in third trimester Z34.93 Problem resolved confirmed 923188112 Problem Vaginal discharge N89.8 Problem resolved confirmed 135201621 Problem care in second trimester Z34.92 Problem resolved confirmed 175600333 Problem 28 weeks gestation of Z3A.28 Problem resolved confirmed 89649300 Problem 32 weeks gestation of Z3A.32 Problem resolved confirmed 8141350 Problem Acne, unspecified L70.9 confirmed 82918222 Problem Late menses N92.6 confirmed 92175028 Problem BMI 36.0-36.9,oren lt Z68.36 confirmed 355653652 Problem Current moderate episode of major depressive disorder without prior episode F32.1 confirmed 86338094 Problem Late period N92.6 confirmed 69138374 Problem care in first trimester Z34.91 confirm 624385197 Problem Irritable bowel syndrome without diarrhea K58.9 confirmed 76334897 Problem History of gestational diabetes Z86.32 confirmed 036090132 Problem GERD (gastroesopha geal reflux disease) K21.9 confirmed 834009061 Problem Infertility, female N97.9 confirmed 3647034 Problem Prediabetes R73.03 confirmed 8210641 02 Problem Iron deficiency anemia secondary to inadequate dietary iron intake D50.8 confirmed 876147607 Problem Gastroesophag eal reflux disease, unspecified whether esophagitis present K21.9 confirmed 394473487 ALLERGIES Allergen (clinical drug ingredient) Drug/Non Drug Allergy documented on EMR Reaction Allergy Type Onset Date Status penicillin V Penicillin V Potassium([facility] Code:[address]-19 ) unsure of reaction Drug Allergy Active ENCOUNTERS from 1988 to 2022-12-10 Encounter Location Date Provider Diagnosis [facility] [address] [facility] [id number] [place] [address] Dec, AKOSUA GARCÍA Vaginal bleeding affecting early O20.8 IMMUNIZATIONS [...] Once a day Active REASON FOR VISIT US order MEDICAL (GENERAL) HISTORY Type Description Date Medical [...] 03:00:00 PM, [address] , [place], [address], Provider Name:DAVIDE Gustafson, 2023-01-03 09:00:00 AM, [address] [facility], [id number], [place], [address], Insurance Providers Payer Name Payer Address Payer Phone Insured Name Patient Relationship to Insured Coverage Start Date Coverage End Date Subscriber Number Group Number BCBS OF [place] [address] [facility] [facility] [facility] [phone] Floyd Hedrick Self - patient is the insured [id number]
--- OUTSIDE RECORDS SUMMARY | 2023-04-24 08:32 | XMS REPORT ---
Author Author [facility] ter of [facility] ter of [facility] Address Unknown Phone Unavailable Care Team Providers Care School Year Nanny Name Role Phone DAVIDE COOL Unavailable PROBLEMS Type Condition ICD9-CM Code SYL43-MP Code Onset Dates Condition Status W/U Status Risk SNOMED Code Notes Problem care in third trimester Z34.93 Problem resolved confirmed 093939925 Problem Vaginal discharge N89.8 Problem resolved confirmed 594961495 Problem care in second trimester Z34.92 Problem resolved confirmed 843846378 Problem 28 weeks gestation of Z3A.28 Problem resolved confirmed 31459563 Problem 32 weeks gestation of Z3A.32 Problem resolved confirmed 2433744 Problem Acne, unspecified L70.9 confirmed 30225598 Problem Late menses N92.6 confirmed 09125036 Problem BMI 36.0-36.9,oren lt Z68.36 confirmed 036799824 Problem Current moderate episode of major depressive disorder without prior episode F32.1 confirmed 95436468 Problem Late period N92.6 confirmed 80771128 Problem care in first trimester Z34.91 confirm 861534895 Problem Irritable bowel syndrome without diarrhea K58.9 confirmed 16716671 Problem History of gestational diabetes Z86.32 confirmed 876425264 Problem GERD (gastroesopha geal reflux disease) K21.9 confirmed 745341373 Problem Infertility, female N97.9 confirmed 1277383 Problem Prediabetes R73.03 confirmed 6259547 02 Problem Iron deficiency anemia secondary to inadequate dietary iron intake D50.8 confirmed 308433689 Problem Gastroesophag eal reflux disease, unspecified whether esophagitis present K21.9 confirmed 157000146 ALLERGIES Allergen (clinical drug ingredient) Drug/Non Drug Allergy documented on EMR Reaction Allergy Type Onset Date Status penicillin V Penicillin V Potassium([facility] Code:[address]-09 ) unsure of reaction Drug Allergy Active ENCOUNTERS from 1988 to 2022-12-02 Encounter Location Date Provider Diagnosis [facility] [address] [facility] [id number] [place] [address] 15 Dec, 2020 DAVIDE COOL IMMUNIZATIONS Vaccine Route Administration Date [...] Once a day Active REASON FOR VISIT Re:RE:Missed Call 12/22/2020-Telephone Encounter MEDICAL (GENERAL) HISTORY Type Description Date [...] VALDOVINOS , 2023-01-03 09:00:00 AM, [address] [facility], [id number], [place], [address], Insurance Providers Payer Name Payer Address Payer Phone Insured Name Patient Relationship to Insured Coverage Start Date Coverage End Date Subscriber Number Group Number BCBS OF [place] [address] [facility] [phone] [phone] Floyd Hedrick Self - patient is the insured [id number]
--- OUTSIDE RECORDS SUMMARY | 2023-04-24 08:32 | XMS REPORT ---
Author Author [facility] ter of [facility] ter of [facility] Address Unknown Phone Unavailable Care Team Providers Care [place] Leverman Name Role Phone IVAN DRISCOLL Unavailable PROBLEMS Type Condition ICD9-CM Code VVB28-JE Code Onset Dates Condition Status W/U Status Risk SNOMED Code Notes Problem care in third trimester Z34.93 Problem resolved confirmed 100651213 Problem Vaginal discharge N89.8 Problem resolved confirmed 173448189 Problem care in second trimester Z34.92 Problem resolved confirmed 165751532 Problem 28 weeks gestation of Z3A.28 Problem resolved confirmed 47322116 Problem 32 weeks gestation of Z3A.32 Problem resolved confirmed 3938736 Problem Acne, unspecified L70.9 confirmed 25280192 Problem Late menses N92.6 confirmed 97758674 Problem BMI 36.0-36.9,oren lt Z68.36 confirmed 619689042 Problem Current moderate episode of major depressive disorder without prior episode F32.1 confirmed 51987672 Problem Late period N92.6 confirmed Problem care in first trimester Z34.91 confirm Problem Irritable bowel syndrome without diarrhea K58.9 confirmed 57346975 Problem History of gestational diabetes Z86.32 confirmed 596200514 Problem GERD (gastroesopha geal reflux disease) K21.9 confirmed 776527672 Problem Infertility, female N97.9 confirmed Problem Prediabetes R73.03 confirmed 4092313 02 Problem Iron deficiency anemia secondary to inadequate dietary iron intake D50.8 confirmed 467911549 Problem Gastroesophag eal reflux disease, unspecified whether esophagitis present K21.9 confirmed 251758511 ALLERGIES Allergen (clinical drug ingredient) Drug/Non Drug Allergy documented on EMR Reaction Allergy Type Onset Date Status penicillin V Penicillin V Potassium([facility] Code:[address]-23 ) unsure of reaction Drug Allergy Active ENCOUNTERS from 1988 to 2022-12-05 Encounter Location Date Provider Diagnosis [facility] [address] [facility] [id number] [place] [address] Dec, IVAN GAULT Vaginal bleeding affecting early O20.8 IMMUNIZATIONS Vaccine [...] Once a day Active REASON FOR VISIT Sat December 26 - MEDICAL (GENERAL) HISTORY Type Description Date Medical [...] VALDOVINOS , 2023-01-03 09:00:00 AM, [address] [facility], [id number], [place], [address], Insurance Providers Payer Name Payer Address Payer Phone Insured Name Patient Relationship to Insured Coverage Start Date Coverage End Date Subscriber Number Group Number BCBS [facility] [address] [facility] [id number] Floyd Hedrick Self - patient is the insured [id number]
--- OUTSIDE RECORDS SUMMARY | 2023-04-24 08:32 | XMS REPORT ---
Author Author [facility] ter of [facility] ter of [facility] Address Unknown Phone Unavailable Care Team Providers Care Data Technical Lead Name Role Phone DAVIDE COOL Unavailable PROBLEMS Type Condition ICD9-CM Code PYC07-RG Code Onset Dates Condition Status W/U Status Risk SNOMED Code Notes Problem care in third trimester Z34.93 Problem resolved confirmed 094768260 Problem Vaginal discharge N89.8 Problem resolved confirmed 145160908 Problem care in second trimester Z34.92 Problem resolved confirmed 894020581 Problem 28 weeks gestation of Z3A.28 Problem resolved confirmed 32445064 Problem 32 weeks gestation of Z3A.32 Problem resolved confirmed 1066347 Problem Acne, unspecified L70.9 confirmed 13991709 Problem Late menses N92.6 confirmed 93192802 Problem BMI 36.0-36.9,oren lt Z68.36 confirmed 008535373 Problem Current moderate episode of major depressive disorder without prior episode F32.1 confirmed 84904173 Problem Late period N92.6 confirmed 00508474 Problem care in first trimester Z34.91 confirm 630351525 Problem Irritable bowel syndrome without diarrhea K58.9 confirmed 19645567 Problem History of gestational diabetes Z86.32 confirmed 491666932 Problem GERD (gastroesopha geal reflux disease) K21.9 confirmed 348895459 Problem Infertility, female N97.9 confirmed 6952432 Problem Prediabetes R73.03 confirmed 3278103 02 Problem Iron deficiency anemia secondary to inadequate dietary iron intake D50.8 confirmed 865230953 Problem Gastroesophag eal reflux disease, unspecified whether esophagitis present K21.9 confirmed 069352659 ALLERGIES Allergen (clinical drug ingredient) Drug/Non Drug Allergy documented on EMR Reaction Allergy Type Onset Date Status penicillin V Penicillin V Potassium([facility] Code:[address]-74 ) unsure of reaction Drug Allergy Active ENCOUNTERS from 1988 to 2022-12-13 Encounter Location Date Provider Diagnosis [facility] [address] [facility] [id number] [place] [address] 28 Dec, 2020 DAVIDE COOL IMMUNIZATIONS Vaccine Route Administration Date Status PRIVATE TDAP (BOOSTRIX) IM Intramuscular Jun 14, 2021 Administered PRIVATE FLULAVAL QUAD 0.5ML (6 MO AND UP) 2019 Unknown Apr 01, 2020 Others PRIVATE FLULAVAL QUAD 0.5ML (6 MO AND [...] day Active REASON FOR VISIT Missed Call 01/05/2021 - Ultrasound Nurse MEDICAL (GENERAL) HISTORY Type Description Date Medical [...] AM, [address] [facility], [id number], [place], [address], Insurance Providers Payer Name Payer Address Payer Phone Insured Name Patient Relationship to Insured Coverage Start Date Coverage End Date Subscriber Number Group Number BCBS OF [place] [address] [facility] [id number] Floyd Hedrick Self - patient is the insured [id number]
--- OUTSIDE RECORDS SUMMARY | 2023-04-24 08:32 | XMS REPORT ---
Author Author [facility] ter of [facility] ter of [facility] Address Unknown Phone Unavailable Care Team Providers Care Plate Worker Helper Name Role Phone DAVIDE COOL Unavailable PROBLEMS Type Condition ICD9-CM Code VHC74-VX Code Onset Dates Condition Status W/U Status Risk SNOMED Code Notes Problem care in third trimester Z34.93 Problem resolved confirmed 332634698 Problem Vaginal discharge N89.8 Problem resolved confirmed 819116233 Problem care in second trimester Z34.92 Problem resolved confirmed 838647154 Problem 28 weeks gestation of Z3A.28 Problem resolved confirmed 96121150 Problem 32 weeks gestation of Z3A.32 Problem resolved confirmed 8483354 Problem Acne, unspecified L70.9 confirmed 66592356 Problem Late menses N92.6 confirmed 36074552 Problem BMI 36.0-36.9,oren lt Z68.36 confirmed 842536669 Problem Current moderate episode of major depressive disorder without prior episode F32.1 confirmed 66436107 Problem Late period N92.6 confirmed 82763373 Problem care in first trimester Z34.91 confirm 334239458 Problem Irritable bowel syndrome without diarrhea K58.9 confirmed 32320308 Problem History of gestational diabetes Z86.32 confirmed 787166633 Problem GERD (gastroesopha geal reflux disease) K21.9 confirmed 841918309 Problem Infertility, female N97.9 confirmed 2806335 Problem Prediabetes R73.03 confirmed 6680585 02 Problem Iron deficiency anemia secondary to inadequate dietary iron intake D50.8 confirmed 438301537 Problem Gastroesophag eal reflux disease, unspecified whether esophagitis present K21.9 confirmed 599404765 ALLERGIES Allergen (clinical drug ingredient) Drug/Non Drug Allergy documented on EMR Reaction Allergy Type Onset Date Status penicillin V Penicillin V Potassium([facility] Code:[address]-97 ) unsure of reaction Drug Allergy Active ENCOUNTERS from 1988 to 2023-01-16 Encounter Location Date Provider Diagnosis [facility] [address] [facility] [id number] [place] [address] Jan, DAVIDE LOUISOCH Vaginal discharge N89.8 IMMUNIZATIONS Vaccine Route Administration Date Status PRIVATE [...] in Jan, Height-cm 97 cm Jan, Weight 241.5 lbs Jan, Weight-kg 109.54 kg Jan, Temperature 97.7 degrees Fahrenheit Jan, Heart Rate 94 bpm Jan, Respiratory Rate 20 bpm Jan, Oximetry 99 % Jan, Blood pressure systolic 108 mmHg Jan, Blood pressure diastolic 60 mmHg Jan, MEDICATIONS Medication SIG (Take, Route, Fr equency, Duration) Notes Start Date End Date Status Gummies Act helder Iron 240 (27 Fe) MG 1 tablet with water or juice between meals Orally Once a day Active REASON FOR VISIT vaginal cyst-pt states the cyst bursted three hours ago but not sure it is all out, states it has been going on about a couple days so just wants to check on it-shaun figueroa, pt also states that she is having some horrible odor and discharge and it appears white and crumbly in appearance, states she has had issues with BV and yeast infections in the past so not sure if it is lingering from that-shaun figueroa MEDICAL (GENERAL) HISTORY Type Description Date Medical [...] N89.8) PLAN OF TREATMENT Next Appt Details as scheduled Reason: Provider Name:TERI PERAZA , 2023-01-31 05:40:00 PM, [address] , [place], [address], Provider Name:DAVIDE VALDOVINOS H, 2023-02-16 02:00:00 PM, [address] [facility], [id number], [place], [address], Insurance Providers Payer Name Payer Address Payer Phone Insured Name Patient Relationship to Insured Coverage Start Date Coverage End Date Subscriber Number Group Number [facility] [address] [facility] [phone] Floyd Hedrick Self - patient is the insured [id number]
--- OUTSIDE RECORDS SUMMARY | 2023-04-24 08:32 | XMS REPORT ---
Author Author [facility] ter of [facility] ter of [facility] Address Unknown Phone Unavailable Care Team Providers Care Bricklayer Paving Brick Name Role Phone DAVIDE COOL Unavailable PROBLEMS Type Condition ICD9-CM Code AHM52-BR Code Onset Dates Condition Status W/U Status Risk SNOMED Code Notes Problem care in third trimester Z34.93 Problem resolved confirmed 729302860 Problem Vaginal discharge N89.8 Problem resolved confirmed 809023754 Problem care in second trimester Z34.92 Problem resolved confirmed 642129258 Problem 28 weeks gestation of Z3A.28 Problem resolved confirmed 29547273 Problem 32 weeks gestation of Z3A.32 Problem resolved confirmed 4767564 Problem Acne, unspecified L70.9 confirmed 57340168 Problem Late menses N92.6 confirmed 96568393 Problem BMI 36.0-36.9,oren lt Z68.36 confirmed 473589454 Problem Current moderate episode of major depressive disorder without prior episode F32.1 confirmed 01581797 Problem Late period N92.6 confirmed 28420098 Problem care in first trimester Z34.91 confirm 833597971 Problem Irritable bowel syndrome without diarrhea K58.9 confirmed 38556126 Problem History of gestational diabetes Z86.32 confirmed 152807415 Problem GERD (gastroesopha geal reflux disease) K21.9 confirmed 526334612 Problem Infertility, female N97.9 confirmed 9592303 Problem Prediabetes R73.03 confirmed 5001087 02 Problem Iron deficiency anemia secondary to inadequate dietary iron intake D50.8 confirmed 671851299 Problem Gastroesophag eal reflux disease, unspecified whether esophagitis present K21.9 confirmed 820756266 ALLERGIES Allergen (clinical drug ingredient) Drug/Non Drug Allergy documented on EMR Reaction Allergy Type Onset Date Status penicillin V Penicillin V Potassium([facility] Code:[address]-36 ) unsure of reaction Drug Allergy Active ENCOUNTERS from 1988 to 2022-11-15 Encounter Location Date Provider Diagnosis [facility] [address] [facility] [id number] [place] [address] 25 Nov, 2020 DAVIDE COOL IMMUNIZATIONS Vaccine Route Administration [...] Once a day Active REASON FOR VISIT Yolanda - Swimming MEDICAL (GENERAL) HISTORY Type Description [...] PERAZA , 2022-11-30 05:20:00 PM, [address] [facility], [place], [address], Insurance Providers Payer Name Payer Address Payer Phone Insured Name Patient Relationship to Insured Coverage Start Date Coverage End Date Subscriber Number Group Number BCBS OF [place] [address] [facility] [id number] [phone] Floyd Hedrick Self - patient is the insured [id number]
[2023-04-24] MEDS ORDERED: ceFAZolin INJECTION 2,000 MG in NS (IVPB) 50 ML 50 ML IV ONE (08:45)
[2023-04-24] MEDS ORDERED: CATHETER FLUSH 10 ML SYR IV PRN (08:45)
[2023-04-24] MEDS ORDERED: CITRIC ACID/SODIUM CITRATE ORAL SOLN 30 ML PO ONE (08:45)
[2023-04-24] MEDS ORDERED: FAMOTIDINE INJ 20MG/2ML VIAL IV ONE (08:45)
[2023-04-24] MEDS ORDERED: METOCLOPRAMIDE INJ 10 MG/2 ML IV ONE (08:45)
[2023-04-24] MEDS: LACTATED RINGERS 1,000 ML 1,000 ML IV PRN ×2 (09:15→11:38)
[2023-04-24 09:31] LABS: BASOPHILS % (AUTO) 0 % (0-10); EOSINOPHILS # (AUTO) 0.1 10^3/uL (0.0-0.3); EOSINOPHILS % (AUTO) 1 % (0-10); HEMATOCRIT 29 % (35-52); HEMOGLOBIN 9.1 g/dL (11.5-16.0); LYMPHOCYTES # (AUTO) 1.8 10^3/uL (1.0-4.0); LYMPHOCYTES % (AUTO) 20 % (12-44); MEAN CORPUSCULAR HEMOGLOBIN 24 pg (25-34); MEAN CORPUSCULAR HGB CONC 31 g/dL (32-36); MEAN CORPUSCULAR VOLUME 78 fL (80-99); MEAN PLATELET VOLUME 10.5 fL (9.0-12.2); MONOCYTES # (AUTO) 0.6 10^3/uL (0.0-1.0); MONOCYTES % (AUTO) 7 % (0-12); NEUTROPHILS # (AUTO) 6.4 10^3/uL (1.8-7.8); NEUTROPHILS % (AUTO) 71 % (42-75); PLATELET COUNT 287 10^3/uL (130-400)
[2023-04-24 11:03] LABS: CLARITY,URINE CLOUDY; COLOR,URINE YELLOW; GLUCOSE, URINE (UA) NEGATIVE (NEGATIVE); PH,URINE 5.5 (5-9); PROTEIN,URINE 1+ (NEGATIVE)
[2023-04-24 11:04] LABS: BILIRUBIN,URINE 1+ (NEGATIVE); KETONES,URINE TRACE (NEGATIVE); LEUKOCYTE ESTERASE ,URINE 2+ (NEGATIVE); NITRITE,URINE NEGATIVE (NEGATIVE); RBC,URINE RARE /HPF
[2023-04-24 11:05] LABS: BACTERIA,URINE LARGE /HPF; WBC,URINE 50-100 /HPF
[2023-04-24] MEDS ORDERED: fentaNYL INJECTION 100 MCG/2 ML VIAL ONE (11:52)
[2023-04-24] MEDS ORDERED: OXYTOCIN DRIP PRE-MIX 1,000 ML IV ONE (11:52)
--- NOTE | 2023-04-24 12:04 | History & Physical-OB ---
OB - Chief Complaint & HPI Date/Time Date of Admission: Date of Admission: Apr 24, 2023 at 08:27 Date seen by a Provider: Apr 24, 2023 Time Seen by a Provider: 11:59 Chief Complaint/History OB-Reason for Admission/Chief: Section Hx : 3 Hx Para: 1 Expected Date of Delivery: May 04, 2023 Gestational Age in Weeks: 38 Gestational Age in Days: 3 Indication for : desires repeat Admission Nurse Assessment Rev: Yes History of Labs A+ GBS + RI Hep B/C neg HIV neg RPR neg Other This 32yo presents to L&D @ [facility] for RLTCS with HO GDMA2 She denies LOF VB and is having occasional CTXs GBs + She verbalized understanding of the risks, benefits and alternatives, signed consents and is ready to proceed. Allergies and Home Medications Allergies Coded Allergies: Penicillins (Verified Allergy, Unknown, INFANT-UNKNOWN REACTION, 12/06/21) Patient Home Medication List Home Medication List Reviewed: Yes Insulin Glargine,Hum.rec.anlog (Lantus) 100 Unit/Ml Vial, 100 UNIT SQ, (Reported) Entered as Reported by: Haylie Garzon on 04/19/231315 Last Action: Reviewed Insulin Lispro (Humalog) 100 Unit/Ml Cartridge, 100 UNIT SQ, (Reported) Entered as Reported by: Haylie Garzon on 04/19/231315 Last Action: Reviewed Sertraline HCl (Sertraline HCl) 50 Mg Tablet, 50 MG PO, (Reported) Entered as Reported by: Haylie Garzon on 04/19/231315 Last Action: Reviewed Discontinued Medications Docusate Sodium (Colace) 100 Mg Capsule, 100 MG PO DAILY Discontinued Reason: No Longer Taking Prescribed by: STEPHANIE KOCH on 12/08/21 1031 Hydrocodone/Acetaminophen (Hydrocodone-Acetamin 5-325 mg) 5 Mg-325 Mg Tablet, 1 EACH PO Q4H PRN for PAIN-MODERATE (5-7) Discontinued Reason: No Longer Taking Prescribed by: STEPHANIE KOCH on 12/08/21 1031 OB - History Patient Past Medical History PMHx: Prediabetes Depression Asthma SurgHx: [place] teeth extraction Immunizations Influenza Vaccine Up-to-Date: Yes; Up-to-Date First/Initial COVID19 Vaccine: 08/19/20 Second COVID19 Vaccination: 09/17/20 Third COVID19 Vaccination Date: MAY 2021 COVID19 Vaccine [employer]: [employer] Hepatitis A: No Hepatitis B: No Tetanus Booster (TDap): Less than 5yrs OB - Admission Exam Physical Exam Vitals: Vital Signs 04/24/23 10:40 Temp 36.5 Pulse 74 Resp 18 B/P (MAP) 111/72 (85) Pulse Ox 97 O2 Delivery Room Air HEENT: NCAT Heart: Rhythm Normal Lungs: Clear Abdomen: Gravid Extremities: Normal Reflexes: Normal Cervical Dilatation: None Effacement: 25% Station: Ballotable Membranes: Intact Heart Rate: 140's Accelerations: Accelerations Present Decelerations: No Decelerations Short Term Variability: Present Intermediate Variability: Average (6-25) Contractions on Admission: >10 Minutes Apart Intensity: Mild Labs Laboratory Tests Test 04/24/23 09:15 Range/Units White Blood Count 9.0 4.3-11.0 10^3/uL Red Blood Count 3.74 L 3.80-5.11 10^6/uL Hemoglobin 9.1 L 11.5-16.0 g/dL Hematocrit 29 L 35-52 % Mean Corpuscular Volume 78 L 80-99 fL Mean Corpuscular Hemoglobin 24 L 25-34 pg Mean Corpuscular Hemoglobin Concent 31 L 32-36 g/dL Red Cell Distribution Width 14.5 10.0-14.5 % Platelet Count 287 130-400 10^3/uL Mean Platelet Volume 10.5 9.0-12.2 fL Immature Granulocyte % (Auto) 0 % Neutrophils (%) (Auto) 71 42-75 % Lymphocytes (%) (Auto) 20 12-44 % Monocytes (%) (Auto) 7 0-12 % Eosinophils (%) (Auto) 1 0-10 % Basophils (%) (Auto) 0 0-10 % Neutrophils # (Auto) 6.4 1.8-7.8 10^3/uL Lymphocytes # (Auto) 1.8 1.0-4.0 10^3/uL Monocytes # (Auto) 0.6 0.0-1.0 10^3/uL Eosinophils # (Auto) 0.1 0.0-0.3 10^3/uL Basophils # (Auto) 0.0 0.0-0.1 10^3/uL Immature Granulocyte # (Auto) 0.0 0.0-0.1 10^3/uL Urine Color YELLOW Urine Clarity CLOUDY Urine pH 5.5 5-9 Urine Specific [place] >=1.030 1.016-1.022 Urine Protein 1+ H NEGATIVE Urine Glucose (UA) NEGATIVE NEGATIVE Urine Ketones TRACE H NEGATIVE Urine Nitrite NEGATIVE NEGATIVE Urine Bilirubin 1+ H NEGATIVE Urine Urobilinogen 1.0 < = 1.0 MG/DL Urine Leukocyte Esterase 2+ H NEGATIVE Urine RBC (Auto) NEGATIVE NEGATIVE Urine RBC RARE /HPF Urine WBC 50-100 H /HPF Urine Squamous Epithelial Cells 10-25 H /HPF Urine Crystals NONE /LPF Urine Bacteria LARGE H /HPF Urine Casts NONE /LPF Urine Mucus MODERATE H /LPF Urine Culture Indicated YES Glucose Level 90 70-105 MG/DL Syphilis Total Antibody Negative Negative OB - Assessment/Plan/Diagnosis Assessment Assessment: section, group B positive strep Admission Dx IUP @ 38w3d GDMA2 Admit for RLTCS Admission Status: Inpatient Order (span 2 midnights) Reason for Inpatient Admission: IUP @ 38w3d GDMA2 Admit for RLTCS Plan Plan: Section LADY PINZON DO Apr 24, 2023 12:04
--- NOTE | 2023-04-24 12:05 | Cesarean Section Operative ---
Procedure Procedure Note Pre-operative Diagnosis: Tiana Hedrick is a 32yo @ 38w3d with GDMA2 and previous LTCS Post-operative Diagnosis: same + liveborn female Procedure: Repeat low transverse section Physician: LADY PINZON Mill Laborer: Sj Elias MS-IV Estimated blood loss: 600 mL Fluids: 1500 Urine output: 50 Disposition: counts correct X3 Stable to RR Findings: Liveborn female infant, Apgars 9/9, weight 7#6oz, intact placenta, 3vc, normal appearing uterus, tubes, and ovaries. Indications:Tiana Hedrick is a 32yo who presents @ 38w3d EGA for RLTCS Procedure Details: The patient was seen in pre-op and the procedure was discussed with the patient in full, including the risks, benefits, and alternatives. All questions were answered. The patient was taken to the operating room and a time out was performed, verifying patient and procedure. After spinal anesthesia was placed by our anesthesia colleagues, the patient was placed in the dorsal supine with leftward tilt for uterine displacement.~ Her abdomen was then prepped and draped in the typical sterile fashion. A Pfannenstiel skin incision was made using a scalpel and carried down through the underlying fascia. The fascia was incised in the midline and tented up using Bridger clamps. On both the inferior and superior fascia side the rectus muscle was dissected off bluntly and sharply using Gonzales scissors. The peritoneum was identified and entered bluntly in the midline. This was then stretched laterally using manual strength. After entering the abdominal cavity and confirming lack of intraperitoneal adhesions, a large Sandor retractor was placed and the lower uterine segment was visualized. A bladder flap was created with the use of Metzenbaum scissors.~ A scalpel was utilized to make a low transverse uterine incision. Amniotomy was performed with an Allis clamp with return of clear fluid. The infant's head was grasped and brought to the level of the incision. Fundal pressure was applied and was delivered without difficulty. Mouth and nares were suctioned with bulb suction. After the umbilical cord was clamped and cut, the infant was handed off to the pediatric staff. A sample of cord blood was then obtained. The placenta was delivered intact via uterine massage. The uterus was exteriorized and cleared of all clots and debris. The uterine incision was closed using 0 Vicryl in a running locked fashion. A second imbricated layer was placed using 0 Vicryl in a running fashion as well. The uterus was flexed forward and the posterior rectouterine space was inspected and cleared of all clots and debris. Again the hysterotomy site was examined and hemostasis was observed. The bilateral tubes and ovaries appeared normal. The uterus was placed back into the abdominal cavity and abdominal gutters were cleared of all clots and debris. A final check of the uterine incision showed it to be hemostatic. The peritoneum was closed using 0 Vicryl in a running fashion. The fascia was closed with 1 Vicryl in a running fashion. The subcutaneous space was hemostatic, and irrigated. The subcutaneous space was closed with 2-0 Vicryl in several single interrupted stitches. The skin was then closed using 4-0 Monocryl in a running subcuticular fashion. The skin edges were reapproximated together and were hemostatic. A pressure dressing was applied. All sponge, lap and needle counts were correct at the end of the procedure per nursing. Vitals - Labs Vital Signs - I&O Vital Signs Date Time Temp Pulse Resp B/P (MAP) Pulse Ox O2 Delivery O2 Flow Rate FiO2 04/24/23 10:40 36.5 74 18 111/72 (85) 97 Room Air 04/24/23 08:45 36.1 71 18 97 Room Air Labs Laboratory Tests 04/24/23 09:15: White Blood Count 9.0, Red Blood Count 3.74L, Hemoglobin 9.1L, Hematocrit 29L, Mean Corpuscular Volume 78L, Mean Corpuscular Hemoglobin 24L, Mean Corpuscular Hemoglobin Concent 31L, Red Cell Distribution Width 14.5, Platelet Count 287, Mean Platelet Volume 10.5, Immature Granulocyte % (Auto) 0, Neutrophils (%) (A uto) 71, Lymphocytes (%) (Auto) 20, Monocytes (%) (Auto) 7, Eosinophils (%) (Auto) 1, Basophils (%) (Auto) 0, Neutrophils # (Auto) 6.4, Lymphocytes # (Auto) 1.8, Monocytes # (Auto) 0.6, Eosinophils # (Auto) 0.1, Basophils # (Auto) 0.0, Immature Granulocyte # (Auto) 0.0, Urine Color YELLOW, Urine Clarity CLOUDY, Urine pH 5.5, Urine Specific [place] >=1.030, Urine Protein 1+H, Urine Glucose (UA) NEGATIVE, Urine Ketones TRACEH, Urine Nitrite NEGATIVE, Urine Bilirubin 1+H , Urine Urobilinogen 1.0, Urine Leukocyte Esterase 2+H, Urine RBC (Auto) NEGATIVE, Urine RBC RARE, Urine WBC 50-100H, Urine Squamous Epithelial Cells 10- 25H, Urine Crystals NONE, Urine Bacteria LARGEH, Urine Casts NONE, Urine Mucus MODERATEH, Urine Culture Indicated YES, Glucose Level 90, Syphilis Total Antibody Negative LADY PINZON DO Apr 24, 2023 12:05
[2023-04-24] MEDS ORDERED: Tetanus/Diphtheria/Pertussis (Acell) ADULT Vaccine 0.5 ML IM SCH (12:15)
[2023-04-24] MEDS ORDERED: ACETAMINOPHEN 500 MG TABLET PO SCH (12:15)
[2023-04-24] MEDS ORDERED: morphine INJ 4 MG/ML 1 ML (VIAL/SYRINGE) IV PRN (12:15)
[2023-04-24] MEDS ORDERED: NALOXONE 0.4 MG/ML 1 ML VIAL IV PRN (12:15)
[2023-04-24] MEDS ORDERED: MEASLES, MUMPS, RUBELLA VACCINE (MMR) SC SCH (12:15)
[2023-04-24] MEDS ORDERED: OXYTOCIN DRIP PRE-MIX 500 ML IV SCH (12:15)
[2023-04-24] MEDS ORDERED: ONDANSETRON INJECTION 4 MG/2 ML (SDV) IVP PRN (12:15)
[2023-04-24] MEDS ORDERED: ONDANSETRON INJECTION 4 MG/2 ML (SDV) ONE (12:49)
[2023-04-24] MEDS ORDERED: PHENYLEPHRINE 100 MCG/ML 10 ML (ANESTHESIA) SYR ONE (12:49)
[2023-04-24] MEDS ORDERED: BUPIVACAINE 0.5% 30 ML VIAL ONE (12:54)
[2023-04-24] MEDS: KETOROLAC INJ 30 MG/ML VIAL IV SCH ×2 (13:53→20:51)
[2023-04-24] MEDS ORDERED: CATHETER FLUSH 10 ML SYR IV SCH ×2 (14:00)
[2023-04-24] MEDS: ACETAMINOPHEN 500 MG TABLET PO SCH ×2 (15:11→17:20)
[2023-04-24] MEDS: METOCLOPRAMIDE 10 MG TABLET PO SCH ×2 (17:20→22:40)
[2023-04-24] MEDS: DOCUSATE SODIUM 100 MG CAPSULE PO SCH (20:51)
[2023-04-24] MEDS ORDERED: IBUP-1780 PO (22:36)
[2023-04-24] MEDS ORDERED: ACHD5005 PO (22:36)
--- NOTE | 2023-04-24 22:38 | Discharge Summary ---
Discharge Summary Hospital Course Hospital Course Date of Admission: Apr 24, 2023 at 08:27 Admission Diagnosis : Family Physician/Provider: Marsha Arroyo MD Date of Discharge: 04/24/23 Discharge Diagnosis: Repeat low-transverse section Hospital Course: Patient was admitted for repeat low-transverse section delivered a liveborn and did very well. her blood sugars were normal and that was discontinued. She continued to do well and on postop day #2 she was discharged home with pain medications and instructions. Labs and Pending Lab Test: Laboratory Tests 04/24/23 09:15: White Blood Count 9.0, Red Blood Count 3.74L, Hemoglobin 9.1L, Hematocrit 29L, Mean Corpuscular Volume 78L, Mean Corpuscular Hemoglobin 24L, Mean Corpuscular Hemoglobin Concent 31L, Red Cell Distribution Width 14.5, Platelet Count 287, Mean Platelet Volume 10.5, Immature Granulocyte % (Auto) 0, Neutrophils (%) (Auto) 71, Lymphocytes (%) (Auto) 20, Monocytes (%) (Auto) 7, Eosinophils (%) (Auto) 1, Basophils (%) (Auto) 0, Neutrophils # (Auto) 6.4, Lymphocytes # (Auto) 1.8, Monocytes # (Auto) 0.6, Eosinophils # (Auto) 0.1, Basophils # (Auto) 0.0, Immature Granulocyte # (Auto) 0.0, Urine Color YELLOW, Urine Clarity CLOUDY, Urine pH 5.5, Urine Specific [place] >=1.030, Urine Protein 1+H, Urine Glucose (UA) NEGATIVE, Urine Ketones TRACEH, Urine Nitrite NEGATIVE, Urine Bilirubin 1+H , Urine Urobilinogen 1.0, Urine Leukocyte Esterase 2+H, Urine RBC (Auto) NEGATIVE, Urine RBC RARE, Urine WBC 50-100H, Urine Squamous Epithelial Cells 10- 25H, Urine Crystals NONE, Urine Bacteria LARGEH, Urine Casts NONE, Urine Mucus MODERATEH, Urine Culture Indicated YES, Glucose Level 90, Syphilis Total Antibody Negative Home Meds Active Ibuprofen 800 Mg Tablet 800 Mg PO Q8H Take 1 tablet every 8 hours as needed for pain Reported Sertraline HCl 50 Mg Tablet 50 Mg PO Lantus (Insulin Glargine,Hum.rec.anlog) 100 Unit/Ml Vial 100 Unit SQ Humalog (Insulin Lispro) 100 Unit/Ml Cartridge 100 Unit SQ Activity: Activity as Tolerated Driving Instructions: No Driving for 1 Week NO SMOKING: NO SMOKING Nothing Inside Vagina: No Douching, No [place], No Tampons Discharge Diet: Regular Diet Symptoms to Report to : Pain Increased, Constipation(Persistant), Fever Over 101 Degrees F, Vaginal Bleeding Increase, Vaginal Discharge Foul For Any Problems or Questions: Contact Your Physician Infection Signs and Symptoms: Increased Redness, Foul Odor of Wound, Increased Drainage, Skin Itchy or Has a Rash, Increased Swelling, Temperature Above 101 F Operative Area Clean and Dry: Keep Incision Clean/Dry Stitches/[place]/Dermabond: Dermabond Bathing Instructions: Shower Discharge Physical Examination Allergies: Coded Allergies: Penicillins (Verified Allergy, Unknown, INFANT-UNKNOWN REACTION, 12/06/21) Vitals & I&Os Vital Signs Date Time Temp Pulse Resp B/P (MAP) Pulse Ox O2 Delivery O2 Flow Rate FiO2 04/24/23 22:16 Room Air 04/24/23 17:23 36.7 70 18 110/66 (81) 04/24/23 14:00 95 Discharge Summary Date of Admission Apr 24, 2023 at 08:27 Date of Discharge Supervisory-Addendum Brief Verification & Attestation Participated in pt care: history, MDM, physical Personally performed: exam, history, MDM, supervision of care Care discussed with: Medical Student Procedures: n/a Results interpretation: Verified all documentation I personally saw and examined this patient LADY PINZON DO Apr 24, 2023 22:38
[2023-04-24] MEDS: oxyCODONE IMMEDIATE RELEASE 5 MG TABLET PO PRN (22:40)
[2023-04-25 02:00] VITALS: BP 121/69
[2023-04-25] MEDS: ACETAMINOPHEN 500 MG TABLET PO SCH ×3 (03:35→20:41)
[2023-04-25] MEDS: KETOROLAC INJ 30 MG/ML VIAL IV SCH ×2 (03:35→09:33)
[2023-04-25 06:21] LABS: BASOPHILS % (AUTO) 0 % (0-10); EOSINOPHILS # (AUTO) 0.1 10^3/uL (0.0-0.3); EOSINOPHILS % (AUTO) 1 % (0-10); HEMATOCRIT 28 % (35-52); HEMOGLOBIN 8.6 g/dL (11.5-16.0); LYMPHOCYTES # (AUTO) 1.8 10^3/uL (1.0-4.0); LYMPHOCYTES % (AUTO) 17 % (12-44); MEAN CORPUSCULAR HEMOGLOBIN 24 pg (25-34); MEAN CORPUSCULAR HGB CONC 30 g/dL (32-36); MEAN CORPUSCULAR VOLUME 80 fL (80-99); MEAN PLATELET VOLUME 10.5 fL (9.0-12.2); MONOCYTES # (AUTO) 0.7 10^3/uL (0.0-1.0); MONOCYTES % (AUTO) 7 % (0-12); NEUTROPHILS # (AUTO) 7.8 10^3/uL (1.8-7.8); NEUTROPHILS % (AUTO) 75 % (42-75); PLATELET COUNT 230 10^3/uL (130-400); WHITE BLOOD COUNT 10.5 10^3/uL (4.3-11.0)
--- NOTE | 2023-04-25 07:10 | Postpartum Progress Note ---
Post Op Post-operative Day #1 Subjective: Patient is postop day #1 status post repeat low transverse section doing well no concerns. [place] catheter has been removed. She tolerated a regu lar diet without nausea or vomiting. Pain is well controlled with pain medications and breast-feeding. Objective: VSS AF Physical Exam: General - Alert and oriented, no apparent distress Breast symmetrical no erythema or edema or engorgement Abdomen - Soft, appropriately tender to palpation, non-distended, fundus firm at umbilicus Incision - clean, dry and intact; no erythema or induration, no drainage Lochia minimal Extremities - no edema, negative Al's bilaterally Assessment: [] post-operative day # 1, status post Repeat LTCS. Recovering well, hemodynamically stable Plan: Routine post-operative care. Encourage breast feeding. Encourage ambulation. VTE prophylaxis: SCDs. Ferrous sulfate supplementation. Plan for discharge [] Vitals - Labs Vital Signs - I&O Vital Signs Date Time Temp Pulse Resp B/P (MAP) Pulse Ox O2 Delivery O2 Flow Rate FiO2 04/25/23 02:00 36.7 87 20 121/69 (86) 98 Room Air 04/24/23 22:16 Room Air 04/24/23 20:45 36.4 86 24 119/59 (79) 96 Room Air 04/24/23 17:23 36.7 70 18 110/66 (81) Room Air 04/24/23 14:00 Room Air 04/24/23 14:00 37.0 16 103/64 (77) 95 Room Air 04/24/23 13:45 Room Air 04/24/23 13:45 36.4 16 109/56 (73) 99 Room Air 04/24/23 13:30 36.4 16 115/61 (79) 97 Room Air 04/24/23 13:30 Room Air 04/24/23 13:15 36.2 16 102/57 (72) 94 Room Air 04/24/23 13:15 Room Air 04/24/23 13:04 36.3 16 100/60 (73) 95 Room Air 04/24/23 13:04 Room Air 04/24/23 10:40 36.5 74 18 111/72 (85) 97 Room Air 04/24/23 08:45 36.1 71 18 97 Room Air I & O 04/25/23 06:59 Intake Total 1250 ml Output Total 150 ml Balance 1100 ml Labs Laboratory Tests 04/24/23 09:15: White Blood Count 9.0, Red Blood Count 3.74L, Hemoglobin 9.1L, Hematocrit 29L, Mean Corpuscular Volume 78L, Mean Corpuscular Hemoglobin 24L, Mean Corpuscular Hemoglobin Concent 31L, Red Cell Distribution Width 14.5, Platelet Count 287, Mean Platelet Volume 10.5, Immature Granulocyte % (Auto) 0, Neutrophils (%) (Auto) 71, Lymphocytes (%) (Auto) 20, Monocytes (%) (Auto) 7, Eosinophils (%) (Auto) 1, Basophils (%) (Auto) 0, Neutrophils # (Auto) 6.4, Lymphocytes # (Auto) 1.8, Monocytes # (Auto) 0.6, Eosinophils # (Auto) 0.1, Basophils # (Auto) 0.0, Immature Granulocyte # (Auto) 0.0, Urine Color YELLOW, Urine Clarity CLOUDY, Ur ine pH 5.5, Urine Specific [place] >=1.030, Urine Protein 1+H, Urine Glucose (UA) NEGATIVE, Urine Ketones TRACEH, Urine Nitrite NEGATIVE, Urine Bilirubin 1+H , Urine Urobilinogen 1.0, Urine Leukocyte Esterase 2+H, Urine RBC (Auto) NEGATIVE, Urine RBC RARE, Urine WBC 50-100H, Urine Squamous Epithelial Cells 10- 25H, Urine Crystals NONE, Urine Bacteria LARGEH, Urine Casts NONE, Urine Mucus MODERATEH, Urine Culture Indicated YES, Glucose Level 90, Syphilis Total Antibody Negative 04/25/23 05:32: White Blood Count 10.5, Red Blood Count 3.56L, Hemoglobin 8.6L, Hematocrit 28L, Mean Corpuscular Volume 80, Mean Corpuscular Hemoglobin 24L, Mean Corpuscular Hemoglobin Concent 30L, Red Cell Distribution Width 14.5, Platelet Count 230, Mean Platelet Volume 10.5, Immature Granulocyte % (Auto) 0, Neutrophils (%) (Auto) 75, Lymphocytes (%) (Auto) 17, Monocytes (%) (Auto) 7, Eosinophils (%) (Auto) 1, Basophils (%) (Auto) 0, Neutrophils # (Auto) 7.8, Lymphocytes # (Auto) 1.8, Monocytes # (Auto) 0.7, Eosinophils # (Auto) 0.1, Basophils # (Auto) 0.0, Immature Granulocyte # (Auto) 0.0, Glucose Level 76 LADY PINZON DO Apr 25, 2023 07:09
[2023-04-25] MEDS: METOCLOPRAMIDE 10 MG TABLET PO SCH ×3 (07:31→20:41)
[2023-04-25] MEDS: oxyCODONE IMMEDIATE RELEASE 5 MG TABLET PO PRN ×2 (07:32→17:01)
[2023-04-25 09:30] VITALS: BP 119/66
[2023-04-25] MEDS: DOCUSATE SODIUM 100 MG CAPSULE PO SCH ×2 (09:33→20:41)
--- NOTE | 2023-04-25 12:55 | Anesthesia-Regional Post-Op ---
Regional Patient Condition Mental Status: Alert, Oriented x3 Circulation: Same as Pre-Op Headache: Absent Sensation: Full Recovery Motor Block: Absent Post Op Complications Complications None Follow Up Care/Instructions Patient Instructions None needed. Anesthesia/Patient Condition Patient is doing well, no complaints, stable vital signs, no apparent adverse anesthesia problems. No complications reported per nursing. HANNA DEY CRNA Apr 25, 2023 12:55
[2023-04-25 13:15] VITALS: BP 114/58
[2023-04-25 17:06] VITALS: BP 119/60
[2023-04-25] MEDS: IBUPROFEN 800 MG TABLET PO SCH (17:11)
[2023-04-25 20:39] VITALS: BP 117/56
[2023-04-26] MEDS: IBUPROFEN 800 MG TABLET PO SCH ×2 (00:45→08:35)
[2023-04-26] MEDS: oxyCODONE IMMEDIATE RELEASE 5 MG TABLET PO PRN ×3 (00:45→13:31)
[2023-04-26 00:49] VITALS: BP 116/75
[2023-04-26] MEDS: METOCLOPRAMIDE 10 MG TABLET PO SCH ×3 (03:32→13:31)
[2023-04-26] MEDS: ACETAMINOPHEN 500 MG TABLET PO SCH ×2 (05:06→13:32)
[2023-04-26 05:07] VITALS: BP 119/67
[2023-04-26 08:30] VITALS: BP 111/60
[2023-04-26] MEDS: DOCUSATE SODIUM 100 MG CAPSULE PO SCH (08:36)
--- NOTE | 2023-04-26 12:56 | Postpartum Progress Note ---
Post Op Post-operative Day #2 Subjective: Patient is without complaints. Ambulating, voiding after bolanos removed. Tolerating a regular diet without nausea or vomiting. Normal lochia. Pain is well controlled with oral pain medications. Passing flatus. Breast feeding. [] Objective: VSS AF Physical Exam: General - Alert and oriented, no apparent distress Breast symmetrical no erythema edema or engorgement Abdomen - Soft, appropriately tender to palpation, non-distended, fundus firm at umbilicus Incision - clean, dry and intact; no erythema or induration, no drainage Lochia minimal Extremities - no edema, negative Al's bilaterally Assessment: [] post-operative day # 2 status post []. Recovering well, hemodynamically stable Plan: Routine post-operative care. Encourage breast feeding. Encourage ambulation. VTE prophylaxis: SCDs. Ferrous sulfate supplementation. Plan for discharge [] Vitals - Labs Vital Signs - I&O Vital Signs Date Time Temp Pulse Resp B/P (MAP) Pulse Ox O2 Delivery O2 Flow Rate FiO2 04/26/23 08:30 36.5 73 16 111/60 (77) 97 Room Air 04/26/23 05:07 36.5 72 16 119/67 (84) 97 Room Air 04/26/23 00:49 36.3 69 16 116/75 (89) 98 Room Air 04/25/23 20:39 36.1 75 18 117/56 (76) 97 Room Air 04/25/23 17:06 36.5 71 18 119/60 (79) 98 Room Air 04/25/23 13:15 36.4 74 18 114/58 (76) 97 Room Air Labs Microbiology 04/24/23 Urine Culture - Final, Complete Strep agalactiae Group B Growth Consistent See Comments LADY PINZON DO Apr 26, 2023 12:56
[2023-04-26 13:30] VITALS: BP 126/63
[2023-04-26 14:40] VITALS: BP 126/63
== END 2023-04-26 14:40 | disposition home or self-care (01) | DRG 788 ==
LOC: LDRP 08:27
PROVIDERS: ADMIT Obstetrics & Gynecology; ATTEND Obstetrics & Gynecology
PROC: 10D00Z1 Extraction of Products of Conception, Low, Open Approach (ICD-10-PCS; principal; 2023-04-24 12:06)
DX: O34.211 Maternal care for low transverse scar from previous cesarean delivery (principal); Z3A.38 38 weeks gestation of pregnancy; Z37.0 Single live birth; O99.824 Streptococcus B carrier state complicating childbirth; O24.424 Gestational diabetes mellitus in childbirth, insulin controlled; O99.343 Other mental disorders complicating pregnancy, third trimester; O99.344 Other mental disorders complicating childbirth; F32.A Depression, unspecified; Z88.0 Allergy status to penicillin
CPT/HCPCS: 36415; 81000; 82947; 85025; 86780; 86850; 86900; 86901; 87077; 87088; 94664